=== PATIENT | male | born 1950 | race Caucasian/White ===

== ENCOUNTER → 2018-04-01 08:37 | Outpatient (CLI) | payer MEDICARE, SELFPAY ==
[2018-04-01 10:30] LABS: AST(SGOT) 17 U/L (15-37); Alanine Aminotransfer ALT/SGPT 21 U/L (16-61); Alkaline Phosphatase 46 U/L (45-117); Bilirubin, Direct 0.08 mg/dL (0.00-0.30); Cholesterol 166 mg/dL (200); Globulin 3.6 g/dL (2.2-4.2); High Density Lipoprotein 42 mg/dL; Protein, Total 7.6 g/dL (6.4-8.2); Triglycerides 118 mg/dL; Very Low Density Lipoprotein 24 mg/dL (5-40)
== END ==
PROVIDERS: Family Provider Family Medicine; PCP Family Medicine; Visit Provider Internal Medicine Cardiovascular Disease
DX: E78.5 Hyperlipidemia, unspecified (principal); I10 Essential (primary) hypertension; I25.810 Atherosclerosis of coronary artery bypass graft(s) without angina pectoris; I47.1 Supraventricular tachycardia; I47.2 Ventricular tachycardia; Z79.899 Other long term (current) drug therapy
CPT/HCPCS: 36415; 80061; 80076

== ENCOUNTER → 2018-06-05 08:31 | Outpatient (CLI) | payer MEDICARE, SELFPAY ==
[2018-06-05 10:41] LABS: Anion Gap 9 (5-15); BUN 24 mg/dL (7-18); BUN/Creat Ratio 21.4 RATIO (10-20); Calcium,Total 8.6 mg/dL (8.5-10.1); Chloride 109 mmol/L (98-107); Creatinine, Serum 1.12 mg/dL (0.70-1.30); EST Glomerular Filtration Rate 69 mL/min (>60); Est Glom Filt Rate - Afr Amer 84 mL/min (>60); Glucose 108 mg/dL (74-106); Potassium 4.3 mmol/L (3.5-5.1); Sodium Level 143 mmol/L (136-145)
[2018-06-05 11:12] LABS: Microalbumin,Random Urine 7.1 mg/L (NO RANGE EST.); Microalbumin:Creatinine Ratio 7.1 mg/g CRE (<30 mg/g CRE)
== END ==
PROVIDERS: Family Provider Family Medicine; PCP Family Medicine; Visit Provider Family Medicine
DX: E11.9 Type 2 diabetes mellitus without complications (principal)
CPT/HCPCS: 36415; 80048; 82043; 82570

== ENCOUNTER → 2018-07-25 09:04 | Outpatient (CLI) | payer MEDICARE, SELFPAY ==
[2018-07-25 11:34] LABS: PSA,Total - Annual Screen 3.17 ng/mL (0.00-4.00)
== END ==
PROVIDERS: Family Provider Family Medicine; PCP Family Medicine; Visit Provider Urology
DX: Z12.5 Encounter for screening for malignant neoplasm of prostate (principal)
CPT/HCPCS: 36415; 84153; G0103

== ENCOUNTER → 2018-12-17 16:08 | Outpatient (CLI) | payer MEDICARE, SELFPAY ==
[2018-04-02 11:44] VITALS: BMI 26.6
--- NOTE | 2018-12-17 16:11 | RAD_ITS ---
STUDY: X-RAY - RIGHT TIBIA AND FIBULA REASON FOR EXAM: Male, 68 years old. post fall TECHNIQUE: 2 view(s) of the tibia and fibula were obtained. COMPARISON: None. FINDINGS: Normal visualized tibia. Normal visualized fibula. There are vascular calcifications demonstrated. There are phleboliths. There is no visualized acute fracture or dislocation. RAD/Tibia & Fibula 2 Views IMPRESSION: No evidence of an acute or chronic fracture. Electronically Signed: Meliza Lopez MD at 16:29 EST Tel , Service support ,
== END ==
PROVIDERS: Family Provider Family Medicine; PCP Family Medicine; Referring Provider Family Medicine; Visit Provider Family Medicine
DX: S80.11XA Contusion of right lower leg, initial encounter (principal); X58.XXXA Exposure to other specified factors, initial encounter; Y93.9 Activity, unspecified; Y92.9 Unspecified place or not applicable; Y99.9 Unspecified external cause status
CPT/HCPCS: 73590

== ENCOUNTER → 2019-03-05 09:11 | Outpatient (CLI) | payer MEDICARE, SELFPAY ==
[2018-04-02 11:44] VITALS: BMI 26.6
[2019-03-05 10:49] LABS: Anion Gap 9 (5-15); BUN 25 mg/dL (7-18); BUN/Creat Ratio 27.2 RATIO (10-20); Calcium,Total 8.6 mg/dL (8.5-10.1); Chloride 104 mmol/L (98-107); Cholesterol 175 mg/dL (200); Creatinine, Serum 0.92 mg/dL (0.70-1.30); EST Glomerular Filtration Rate 86 mL/min (>60); Est Glom Filt Rate - Afr Amer 105 mL/min (>60); Glucose 84 mg/dL (74-106); High Density Lipoprotein 40 mg/dL; Potassium 4.6 mmol/L (3.5-5.1); Sodium Level 137 mmol/L (136-145); Triglycerides 148 mg/dL; Very Low Density Lipoprotein 30 mg/dL (5-40)
== END ==
PROVIDERS: Family Provider Family Medicine; PCP Family Medicine; Referring Provider Family Medicine; Visit Provider Family Medicine
DX: E11.9 Type 2 diabetes mellitus without complications (principal)
CPT/HCPCS: 36415; 80048; 80061

== ENCOUNTER → 2019-04-03 08:19 | Outpatient (CLI) | payer MEDICARE, SELFPAY ==
[2018-04-02 11:44] VITALS: BMI 26.6
[2019-04-03 09:20] LABS: AST(SGOT) 15 U/L (15-37); Alanine Aminotransfer ALT/SGPT 18 U/L (16-61); Albumin, Serum 3.9 g/dL (3.2-5.0); Alkaline Phosphatase 44 U/L (45-117); Bilirubin, Direct 0.14 mg/dL (0.00-0.30); Cholesterol 168 mg/dL (200); Globulin 3.6 g/dL (2.2-4.2); High Density Lipoprotein 42 mg/dL; Protein, Total 7.5 g/dL (6.4-8.2); Triglycerides 145 mg/dL; Very Low Density Lipoprotein 29 mg/dL (5-40)
== END ==
PROVIDERS: Family Provider Family Medicine; PCP Family Medicine; Referring Provider Internal Medicine Cardiovascular Disease; Visit Provider Internal Medicine Cardiovascular Disease
DX: E78.5 Hyperlipidemia, unspecified (principal)
CPT/HCPCS: 36415; 80061; 80076

== ENCOUNTER → 2019-08-05 15:48 | Outpatient (CLI) | payer MEDICARE, SELFPAY ==
[2019-04-09 15:16] VITALS: BMI 26.6
[2019-08-05 17:41] LABS: PSA,Total - Annual Screen 2.68 ng/mL (0.00-4.00)
== END ==
PROVIDERS: Family Provider Family Medicine; PCP Family Medicine; Referring Provider Urology; Visit Provider Urology
DX: Z12.5 Encounter for screening for malignant neoplasm of prostate (principal)
CPT/HCPCS: 36415; 84153; G0103

== ENCOUNTER → 2019-09-12 12:13 | Outpatient (CLI) | payer MEDICARE, SELFPAY ==
[2019-04-09 15:16] VITALS: BMI 26.6
[2019-09-12 14:12] LABS: ALB/GLOB Ratio 1.1 RATIO (0.9-2.4); AST(SGOT) 16 U/L (15-37); Alanine Aminotransfer ALT/SGPT 20 U/L (16-61); Albumin, Serum 3.9 g/dL (3.2-5.0); Alkaline Phosphatase 46 U/L (45-117); Anion Gap 5 (5-15); BUN 24 mg/dL (7-18); BUN/Creat Ratio 23.8 RATIO (10-20); Chloride 102 mmol/L (98-107); Creatinine, Serum 1.01 mg/dL (0.70-1.30); EST Glomerular Filtration Rate 78 mL/min (>60); Est Glom Filt Rate - Afr Amer 94 mL/min (>60); Globulin 3.6 g/dL (2.2-4.2); Glucose 82 mg/dL (74-106); Potassium 4.7 mmol/L (3.5-5.1); Protein, Total 7.5 g/dL (6.4-8.2); Sodium Level 135 mmol/L (136-145)
== END ==
PROVIDERS: Family Provider Family Medicine; PCP Family Medicine; Referring Provider Family Medicine; Visit Provider Family Medicine
DX: E11.9 Type 2 diabetes mellitus without complications (principal)
CPT/HCPCS: 36415; 80053

== ENCOUNTER → 2020-03-02 07:35 | Outpatient (CLI) | payer MEDICARE, SELFPAY ==
[2019-04-09 15:16] VITALS: BMI 26.6
[2020-03-02 08:13] LABS: AST(SGOT) 14 U/L (15-37); Alanine Aminotransfer ALT/SGPT 18 U/L (16-61); Albumin, Serum 3.9 g/dL (3.2-5.0); Alkaline Phosphatase 45 U/L (45-117); Cholesterol 176 mg/dL (200); Globulin 3.5 g/dL (2.2-4.2); High Density Lipoprotein 43 mg/dL; Protein, Total 7.4 g/dL (6.4-8.2); Triglycerides 123 mg/dL; Very Low Density Lipoprotein 25 mg/dL (5-40)
== END ==
PROVIDERS: PCP Family Medicine; Referring Provider Internal Medicine Cardiovascular Disease; Visit Provider Internal Medicine Cardiovascular Disease
DX: E78.5 Hyperlipidemia, unspecified (principal)
CPT/HCPCS: 36415; 80061; 80076

== ENCOUNTER → 2020-05-04 06:18 | Outpatient (CLI) | payer MEDICARE, SELFPAY ==
[2020-04-05 08:41] VITALS: BMI 25.9
--- NOTE | 2020-05-04 07:58 | STRESSREP ---
Stress Test Report Date: 05-04-2020 Procedure: Exercise tolerance test/imaging study Indications: CAD; CABG; SVT; hyperlipidemia; hypertension Consent: Per the patient Procedure: The patient exercised on a Odell protocol for 7 minutes and 15 seconds completing Stage II and 1 minute and 15 seconds of Stage III achieving a peak heart rate of 125 bpm (83 % predicted maximal heart rate) with a peak blood pressure 168/64 mmHg and a peak MET capacity of 7 METs. The baseline ECG demonstrated normal sinus rhythm; septal AR of indeterminate age cannot be excluded. The peak exercise ECG demonstrated somatic/motion artifact with 0.5 to 1.[address] segment depression in leads II, III, aVF, and V4 through V6 with resolution towards baseline beginning by 1 minute in recovery. There were no cardiac dysrhythmias pretest, during exercise, or recovery. The functional capacity was considered average. There was no complaint of chest discomfort during exercise or recovery. The examination was discontinued secondary to dyspnea and leg discomfort. Impression: 1. Technically adequate (percent predicted maximal heart rate greater than 85%) exercise tolerance test 2. Peak exercise ECG demonstrating somatic/motion artifact with 0.5 to 1.[address] segment depression in leads II, III, aVF, and V4 through V6 with resolution towards baseline beginning by 1 minute in recovery 3. There were no cardiac dysrhythmias pretest, during exercise, or recovery 4. Nuclear images pending Myocardial perfusion imaging study: Technique: The patient was injected with 12.0 mCi of technetium 99m Cardiolite and subsequently rest SPECT Cardiolite nuclear imaging was obtained in the horizontal long, vertical long, and short axis views. The patient exercised on a Odell protocol for 7 minutes and 15 seconds completing Stage II and 1 minute and 15 seconds of Stage III achieving a peak heart rate of 125 bpm (83 % predicted maximal heart rate) with a peak blood pressure 168/64 mmHg and a peak MET capacity of 7 METs. The patient was injected with 36.0 mCi of technetium 99m Cardiolite and subsequently stress SPECT Cardiolite nuclear imaging was obtained in the horizontal long, vertical long, and short axis views. A gated Cardiolite study at peak stress was obtained. Interpretation: Rest and stress SPECT Cardiolite nuclear imaging status post realignment, normalization, and attenuation correction, demonstrates the appearance of relative uniform tracer uptake and myocardial perfusion appearing within normal limits. There is end systolic thickening and brightening. The gated Cardiolite study demonstrates myocardial thickening and inward wall motion. The reported LVEF is 77 %. Impression: 1. Rest and stress SPECT Cardiolite nuclear imaging demonstrate relative uniform tracer uptake and myocardial perfusion appearing within normal limits. 2. The gated Cardiolite study reports an LVEF of 77 %. This note was generated with [employer] software. It may contain incorrect words, spelling, and punctuation that were not noted in checking the note before signing.
== END ==
PROVIDERS: PCP Family Medicine; Referring Provider Internal Medicine Cardiovascular Disease; Visit Provider Internal Medicine Cardiovascular Disease
DX: I25.10 Atherosclerotic heart disease of native coronary artery without angina pectoris (principal); I47.1 Supraventricular tachycardia; I10 Essential (primary) hypertension; E78.5 Hyperlipidemia, unspecified; Z95.1 Presence of aortocoronary bypass graft
CPT/HCPCS: 78452; 93017; A9500; A4216

== ENCOUNTER → 2020-06-02 08:49 | Outpatient (CLI) | payer MEDICARE, SELFPAY ==
[2020-04-05 08:41] VITALS: BMI 25.9
[2020-06-02 10:59] LABS: Anion Gap 7 (5-15); BUN 21 mg/dL (7-18); BUN/Creat Ratio 21.7 RATIO (10-20); Calcium,Total 8.6 mg/dL (8.5-10.1); Chloride 109 mmol/L (98-107); Cholesterol 166 mg/dL (200); Creatinine, Serum 0.97 mg/dL (0.70-1.30); EST Glomerular Filtration Rate 81 mL/min (>60); Est Glom Filt Rate - Afr Amer 99 mL/min (>60); Glucose 137 mg/dL (74-106); High Density Lipoprotein 42 mg/dL; Potassium 4.1 mmol/L (3.5-5.1); Sodium Level 141 mmol/L (136-145); Triglycerides 70 mg/dL; Very Low Density Lipoprotein 14 mg/dL (5-40)
== END ==
PROVIDERS: PCP Family Medicine; Visit Provider Family Medicine
DX: E11.9 Type 2 diabetes mellitus without complications (principal)
CPT/HCPCS: 36415; 80048; 80061

== ENCOUNTER → 2020-08-17 08:28 | Outpatient (CLI) | payer MEDICARE, SELFPAY ==
[2020-04-05 08:41] VITALS: BMI 25.9
[2020-08-17 09:23] LABS: PSA,Total - Annual Screen 2.72 ng/mL (0.00-4.00)
== END ==
PROVIDERS: PCP Family Medicine; Referring Provider Urology; Visit Provider Urology
DX: Z12.5 Encounter for screening for malignant neoplasm of prostate (principal)
CPT/HCPCS: 36415; 84153; G0103

== ENCOUNTER → 2020-08-23 16:41 | Outpatient (CLI) | payer MEDICARE, SELFPAY ==
[2020-04-05 08:41] VITALS: BMI 25.9
[2020-08-23 18:30] LABS: Erythrocyte Sedimentation Rate 46 mm/hr (0-20)
[2020-08-23 19:05] LABS: Anion Gap 6 (5-15); BUN 38 mg/dL (7-18); BUN/Creat Ratio 31.1 RATIO (10-20); CPK Total, Creatine Kinase 48 U/L (39-308); Chloride 104 mmol/L (98-107); Creatinine, Serum 1.22 mg/dL (0.70-1.30); EST Glomerular Filtration Rate 62 mL/min (>60); Est Glom Filt Rate - Afr Amer 75 mL/min (>60); Glucose 207 mg/dL (74-106); Potassium 4.5 mmol/L (3.5-5.1); Sodium Level 136 mmol/L (136-145)
[2020-08-23 19:13] LABS: AST(SGOT) 9 U/L (15-37); Alanine Aminotransfer ALT/SGPT 12 U/L (16-61); Albumin, Serum 3.3 g/dL (3.2-5.0); Alkaline Phosphatase 54 U/L (45-117); Bilirubin, Direct 0.08 mg/dL (0.00-0.30); Cholesterol 172 mg/dL (200); Globulin 3.9 g/dL (2.2-4.2); High Density Lipoprotein 44 mg/dL; Protein, Total 7.2 g/dL (6.4-8.2); Triglycerides 134 mg/dL; Very Low Density Lipoprotein 27 mg/dL (5-40)
[2020-08-25 14:38] LABS: ANTINUCLEAR ANTIBODIES DIRECT Positive (Negative)
== END ==
PROVIDERS: Internal Medicine Cardiovascular Disease; PCP Family Medicine; Visit Provider Family Medicine
DX: E78.00 Pure hypercholesterolemia, unspecified (principal); M79.10 Myalgia, unspecified site; M25.50 Pain in unspecified joint
CPT/HCPCS: 36415; 80048; 80061; 80076; 82550; 85652; 86038

== ENCOUNTER → 2020-09-22 | Outpatient (CLI) | payer MEDICARE, SELFPAY ==
[2020-04-05 08:41] VITALS: BMI 25.9
[2020-09-22 09:18] LABS: Lyme Ab Screen Interpretation REF LAB
[2020-09-23 17:09] LABS: Lyme Scn Total Ab w/Rflx <0.91 ISR (0.00-0.90)
== END | disposition home or self-care (01) ==
LOC: MFPLAB 09:14
PROVIDERS: PCP Family Medicine; Referring Provider Family Medicine; Visit Provider Family Medicine
DX: T14.8XXA Other injury of unspecified body region, initial encounter (principal); W57.XXXA Bitten or stung by nonvenomous insect and other nonvenomous arthropods, initial encounter; Y93.9 Activity, unspecified; Y92.9 Unspecified place or not applicable; Y99.9 Unspecified external cause status
CPT/HCPCS: 36415; 86618

== ENCOUNTER → 2020-09-28 10:20 | Outpatient (CLI) | payer MEDICARE, SELFPAY ==
[2020-04-05 08:41] VITALS: BMI 25.9
--- NOTE | 2020-09-28 10:24 | RAD_ITS ---
STUDY: X-RAY - RIGHT SHOULDER REASON FOR EXAM: Male, 70 years old. Inflammatory polyarthropathy TECHNIQUE: 4 view(s) of the shoulder. COMPARISON: None. FINDINGS: Normal glenohumeral articulation. Normal acromioclavicular joint. Normal acromion. Normal humeral head and visualized proximal humerus. There is periarticular soft tissue calcification consistent with a calcific tendinitis. Normal visualized pulmonary apex. RAD/Shoulder min 2 Views IMPRESSION: Calcific tendinitis. Electronically Signed: Homar Aburto, at 12:59 EST , Service support ,
--- NOTE | 2020-09-28 10:24 | RAD_ITS ---
STUDY: X-RAY - LEFT SHOULDER REASON FOR EXAM: Male, 70 years old. Inflammatory polyarthropathy TECHNIQUE: 4 view(s) of the shoulder. COMPARISON: None. FINDINGS: Normal glenohumeral articulation. Normal acromioclavicular joint. Normal acromion. Normal humeral head and visualized proximal humerus. There is a 6.6 mm rounded calcific density in the lateral aspect of the left axillary region suggestive of possible calcified lymph node. Normal visualized pulmonary apex. RAD/Shoulder min 2 Views IMPRESSION: No acute abnormality is seen. Electronically Signed: Homar Aburto, at 13:00 EST , Service support ,
[2020-09-28 11:28] LABS: EXAGEN MAILED SPECIMEN
[2020-09-28 12:24] LABS: Color, Urine Yellow (Yellow); Glucose, Dipstick 1000 mg/dl (Normal); Ketone-Dipstick 5 mg/dl (Negative); Leukocyte Esterase-Dipstick Negative /ul (Negative); Nitrite-Dipstick Negative (Negative); Occult Blood-Urine Negative /ul (Negative); Protein-Dipstick Negative (Negative); Urine Bilirubin Dipstick Negative (Negative); Urine Clarity Clear (Clear); Urine Urobilinogen Normal (Normal)
[2020-09-28 12:26] LABS: Erythrocyte Sedimentation Rate 8 mm/hr (0-20)
[2020-09-28 12:28] LABS: Absolute Lymphocyte Count 2.13 X10^3/uL (0.83-4.51); Absolute Neutrophil Count 7.8 X10^3/uL (2.0-7.7); Basophil# 0.07 X10^3/uL; Basophil% 0.6 % (0-1); Eosinophil# 0.13 X10^3/uL; Eosinophils% 1.1 % (0-5); Hematocrit 44.2 % (40-54); Hemoglobin 14.7 g/dL (13.0-16.5); Lymphocyte # 2.13 X10^3/ul (4.0); Lymphocyte % 18.7 % (19-41); Mean Corp Hgb Conc 33.3 g/dL (32-36); Mean Corpuscular Hgb 30.6 pg (27.0-32.0); Mean Corpuscular Volume 92.1 fL (80-94); Mean Platelet Vol. 9.6 fl (6.2-12.0); Monocyte# 1.06 X10^3/uL; Monocyte% 9.3 % (0-10); NRBC Flagged by Analyzer 0 % (0-5); Neutrophil % 68.7 % (47-70); Platelet Count 313 K/mm3 (150-450); RBC Distribution Width CV 11.7 % (11.6-14.6); White Blood Count 11.4 K/mm3 (4.4-11.0)
[2020-09-28 12:40] LABS: Protein, Urine (Random) 9.1 mg/dL (<11.9); Protein:Creat Ratio 126 mg/g CRE (0-200)
[2020-09-28 12:46] LABS: ALB/GLOB Ratio 0.9 RATIO (0.9-2.4); AST(SGOT) 9 U/L (15-37); Alanine Aminotransfer ALT/SGPT 19 U/L (16-61); Albumin, Serum 3.8 g/dL (3.2-5.0); Alkaline Phosphatase 54 U/L (45-117); Anion Gap 7 (5-15); BUN 33 mg/dL (7-18); BUN/Creat Ratio 28.4 RATIO (10-20); CRP 5.48 mg/L (0.0-3.0); Calcium,Total 9.2 mg/dL (8.5-10.1); Chloride 98 mmol/L (98-107); Creatinine, Serum 1.16 mg/dL (0.70-1.30); EST Glomerular Filtration Rate 66 mL/min (>60); Est Glom Filt Rate - Afr Amer 80 mL/min (>60); Globulin 4.1 g/dL (2.2-4.2); Glucose 149 mg/dL (74-106); Potassium 5.5 mmol/L (3.5-5.1); Protein, Total 7.9 g/dL (6.4-8.2); Sodium Level 132 mmol/L (136-145)
[2020-09-28 13:19] LABS: Hepatitis B Surface Antibody Non-Reactive; Hepatitis B Surface Antigen Non-Reactive (Nonreactive); Hepatitis C Antibody Non-Reactive (Nonreactive)
[2020-09-29 08:14] LABS: Hepatitis B Core AB IgM Negative (Negative)
== END ==
PROVIDERS: PCP Family Medicine; Referring Provider Internal Medicine Rheumatology; Visit Provider Internal Medicine Rheumatology
DX: M06.4 Inflammatory polyarthropathy (principal); R76.8 Other specified abnormal immunological findings in serum; M51.36 Other intervertebral disc degeneration, lumbar region; H35.30 Unspecified macular degeneration; I10 Essential (primary) hypertension; E11.9 Type 2 diabetes mellitus without complications; E78.5 Hyperlipidemia, unspecified; I25.10 Atherosclerotic heart disease of native coronary artery without angina pectoris; N13.8 Other obstructive and reflux uropathy; N40.0 Benign prostatic hyperplasia without lower urinary tract symptoms
CPT/HCPCS: 36415; 73030; 80053; 81002; 82570; 84156; 85025; 85652; 86140; 86705; 86706; 86803; 87340

== ENCOUNTER → 2020-12-01 09:23 | Outpatient (CLI) | payer MEDICARE, SELFPAY ==
[2020-04-05 08:41] VITALS: BMI 25.9
[2020-12-01 10:58] LABS: AST(SGOT) 10 U/L (15-37); Alanine Aminotransfer ALT/SGPT 18 U/L (16-61); Albumin, Serum 3.6 g/dL (3.2-5.0); Alkaline Phosphatase 46 U/L (45-117); Anion Gap 6 (5-15); BUN 18 mg/dL (7-18); BUN/Creat Ratio 21.9 RATIO (10-20); Calcium,Total 8.8 mg/dL (8.5-10.1); Chloride 104 mmol/L (98-107); Creatinine, Serum 0.82 mg/dL (0.70-1.30); EST Glomerular Filtration Rate 98 mL/min (>60); Est Glom Filt Rate - Afr Amer 118 mL/min (>60); Globulin 3.5 g/dL (2.2-4.2); Glucose 93 mg/dL (74-106); Potassium 3.9 mmol/L (3.5-5.1); Protein, Total 7.1 g/dL (6.4-8.2); Sodium Level 135 mmol/L (136-145)
== END ==
PROVIDERS: PCP Family Medicine; Referring Provider Family Medicine; Visit Provider Family Medicine
DX: E78.5 Hyperlipidemia, unspecified (principal)
CPT/HCPCS: 36415; 80053

== ENCOUNTER → 2020-12-23 08:22 | Outpatient (CLI) | payer MEDICARE, SELFPAY ==
[2020-04-05 08:41] VITALS: BMI 25.9
[2020-12-23 09:14] LABS: AST(SGOT) 13 U/L (15-37); Alanine Aminotransfer ALT/SGPT 17 U/L (16-61); Albumin, Serum 3.8 g/dL (3.2-5.0); Alkaline Phosphatase 47 U/L (45-117); Bilirubin, Direct 0.06 mg/dL (0.00-0.30); Cholesterol 188 mg/dL (200); Globulin 3.5 g/dL (2.2-4.2); High Density Lipoprotein 47 mg/dL; Protein, Total 7.3 g/dL (6.4-8.2); Triglycerides 120 mg/dL; Very Low Density Lipoprotein 24 mg/dL (5-40)
== END ==
PROVIDERS: PCP Family Medicine; Referring Provider Internal Medicine Cardiovascular Disease; Visit Provider Internal Medicine Cardiovascular Disease
DX: E78.00 Pure hypercholesterolemia, unspecified (principal)
CPT/HCPCS: 36415; 80061; 80076

== ENCOUNTER → 2020-12-24 10:04 | Outpatient (CLI) | payer MEDICARE, SELFPAY ==
[2020-04-05 08:41] VITALS: BMI 25.9
[2020-12-24 12:44] LABS: Absolute Lymphocyte Count 1.57 X10^3/uL (0.83-4.51); Absolute Neutrophil Count 4.3 X10^3/uL (2.0-7.7); Basophil# 0.05 X10^3/uL; Basophil% 0.7 % (0-1); Eosinophil# 0.38 X10^3/uL; Eosinophils% 5.5 % (0-5); Hematocrit 41.2 % (40-54); Hemoglobin 13.6 g/dL (13.0-16.5); Lymphocyte # 1.57 X10^3/ul (4.0); Lymphocyte % 22.7 % (19-41); Mean Corpuscular Hgb 30.8 pg (27.0-32.0); Mean Corpuscular Volume 93.4 fL (80-94); Mean Platelet Vol. 9.5 fl (6.2-12.0); Monocyte# 0.58 X10^3/uL; Monocyte% 8.4 % (0-10); NRBC Flagged by Analyzer 0 % (0-5); Platelet Count 246 K/mm3 (150-450); Red Blood Count 4.41 M/mm3 (4.6-6.2); White Blood Count 6.9 K/mm3 (4.4-11.0)
[2020-12-24 13:17] LABS: ALB/GLOB Ratio 1.1 RATIO (0.9-2.4); AST(SGOT) 13 U/L (15-37); Alanine Aminotransfer ALT/SGPT 16 U/L (16-61); Albumin, Serum 3.6 g/dL (3.2-5.0); Alkaline Phosphatase 48 U/L (45-117); Anion Gap 7 (5-15); BUN 26 mg/dL (7-18); BUN/Creat Ratio 29.1 RATIO (10-20); Calcium,Total 9.4 mg/dL (8.5-10.1); Chloride 104 mmol/L (98-107); Creatinine, Serum 0.89 mg/dL (0.70-1.30); EST Glomerular Filtration Rate 89 mL/min (>60); Est Glom Filt Rate - Afr Amer 108 mL/min (>60); Globulin 3.4 g/dL (2.2-4.2); Glucose 105 mg/dL (74-106); Potassium 3.9 mmol/L (3.5-5.1); Sodium Level 138 mmol/L (136-145)
== END ==
PROVIDERS: PCP Family Medicine; Referring Provider Internal Medicine Rheumatology; Visit Provider Internal Medicine Rheumatology
DX: M06.4 Inflammatory polyarthropathy (principal); R76.8 Other specified abnormal immunological findings in serum; M51.36 Other intervertebral disc degeneration, lumbar region; H35.30 Unspecified macular degeneration; I10 Essential (primary) hypertension; E11.9 Type 2 diabetes mellitus without complications; E78.5 Hyperlipidemia, unspecified; I25.10 Atherosclerotic heart disease of native coronary artery without angina pectoris; N40.0 Benign prostatic hyperplasia without lower urinary tract symptoms; N13.8 Other obstructive and reflux uropathy
CPT/HCPCS: 36415; 80053; 85025

== ENCOUNTER → 2020-12-28 09:50 | Outpatient (CLI) | payer MEDICARE, SELFPAY ==
[2020-04-05 08:41] VITALS: BMI 25.9
--- NOTE | 2020-12-28 09:56 | BD_ITS ---
STUDY: DUAL ENERGY X-RAY ABSORPTIOMETRY / DXA REASON FOR EXAM: Male, 70 years old. 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 COMPARISON: None. FINDINGS: Lumbar Spine (L1-L4): g/cm2 (1.590) / T-score (2.9) / Z-score (3.5) Findings are suggestive of normal bone density with a low fracture risk. Left Femur Total: g/cm2 (1.107) / T-score (0.0) / Z-score (0.8) Left Femoral Neck: g/cm2 (0.883) / T-score (-1.4) / Z-score (-0.2) Right Femur Total: g/cm2 (1.074) / T-score (-0.2) / Z-score (0.6) Right Femoral Neck: g/cm2 (0.910) / T-score (-1.2) / Z-score (0.1) BD/Dexa Bone Density Study IMPRESSION: The patient is considered normal as outlined below according to World Sky Organization (WHO) criteria with a low fracture risk. Reference Information: The T-score is the number of standard deviations above or below the standard which is normal for young adults at their peak bone mineral density. The World Health Organization (WHO) interprets the T-scores as follows: Above -1 Normal bone density Between -1 and -2.5 Osteopenia Equal to / or below -2.5 Osteoporosis As a practical clinical guideline, osteopenia may be graded as follows: Mild -1 through -1.5 Moderate -1.6 through -2.0 Severe -2.1 through -2.4 The Z-score is the number of standard deviations above or below age-matched controls. A Z-score of less than -1.5 would be considered abnormal. References: 1. NIH Osteoporosis and Related Bone Diseases www osteo.org 2. International Society for Clinical Densitometry www iscd.org 3. National Osteoporosis Foundation www nof.org Electronically Signed: Homar Aburto MD at 12:47 EST , Service support ,
== END ==
PROVIDERS: PCP Family Medicine; Referring Provider Family Medicine; Visit Provider Family Medicine
DX: E11.9 Type 2 diabetes mellitus without complications (principal); Z79.52 Long term (current) use of systemic steroids
CPT/HCPCS: 77080

== ENCOUNTER → 2021-01-06 09:44 | Outpatient (CLI) | payer MEDICARE, SELFPAY ==
[2020-12-30 11:15] VITALS: BMI 26.9
--- NOTE | 2021-01-06 09:51 | ECHOD_ITS ---
Reason For Study: MURMUR Procedure This was a 2D Doppler, Color Flow transthoracic echocardiogram. The study was technically difficult. Exam performed in department. Left Ventricle Normal LV size. Left ventricular systolic function is normal. The estimated ejection fraction is 65 %. No evidence for diastolic dysfunction. No regional wall motion abnormalities noted. Right Ventricle Normal RV size. Normal systolic function. Atria The left atrium is mildly enlarged. The right atrium is mildly enlarged. No doppler evidence for ASD. Bubble contrast study negative for right to left interatrial shunt. Mitral Valve There is mild mitral annular calcification. Extension of the mitral annular calcification onto the base of the posterior mitral valve leaflet. Trivial mitral valve insufficiency. Tricuspid Valve Normal tricuspid valve. Mild to moderate (1-2+) tricuspid valve insufficiency. Right ventricular systolic pressure estimated to be 36 mmHg. Aortic Valve Trisinus/trileaflet aortic valve. Moderate focal aortic valve calcification. Aortic sclerosis, no stenosis. Pulmonic Valve The pulmonic valve is not well visualized. Great Vessels Normal sized aortic root. Pericardium/Pleural No pericardial effusion. Medication 22 gauge I.V. with prn adaptor inserted into right arm. Performed a rapid injection of agitated mix of 9 cc saline and 1cc air to assess for atrial septal defect. MMode/2D Measurements & Calculations LVIDd: 4.3 cm IVSd: 1.0 cm LVOT diam: 2.0 cm LVIDs: 2.8 cm LVPWd: 1.0 cm RVDd: 3.4 cm FS: 35.7 % LVOT area: 3.1 cm2 Ao root diam: 3.3 cm LAV(MOD-bp): 59.1 ml LVAd ap4: 31.5 cm2 LAV(MOD-bp) Indexed: 29.8 ml/m2 EDV(MOD-sp4): 98.7 ml LAV(MOD-sp2): 62.8 ml EDV(sp4-el): 101.3 ml LAV(MOD-sp4): 50.2 ml LVAs ap4: 15.0 cm2 ESV(MOD-sp4): 32.1 ml ESV(sp4-el): 30.6 ml EF(MOD-sp4): 67.4 % EF(sp4-el): 69.8 % SV(MOD-sp4): 66.5 ml SV(sp4-el): 70.7 ml LA A4 area: 18.8 cm2 LA dimension(2D): 3.8 cm RA A4 area: 19.1 cm2 Time Measurements MV dec time: 0.24 sec Doppler Measurements & Calculations MV E max cruz: 90.2 cm/sec Lat Peak E' Cruz: 11.0 cm/sec Med Peak E' Cruz: 9.8 cm/sec MV A max cruz: 82.6 cm/sec E/E' lat: 8.2 E/E' med: 9.2 MV E/A: 1.1 Ao V2 max: 180.5 cm/sec LV V1 max: 114.3 cm/sec PA V2 max: 90.4 cm/sec Ao max P.0 mmHg LV V1 max P.2 mmHg CHUCK(V,D): 2.0 cm2 TR max cruz: 285.4 cm/sec TR max P.6 mmHg Interpretation Summary The study was technically difficult. Left ventricular systolic function is normal. The estimated ejection fraction is 65 %. The left atrium is mildly enlarged. The right atrium is mildly enlarged. There is mild mitral annular calcification. Extension of the mitral annular calcification onto the base of the posterior mitral valve leaflet. Trivial mitral valve insufficiency. Mild to moderate (1-2+) tricuspid valve insufficiency. Moderate focal aortic valve calcification. Aortic sclerosis, no stenosis. Right ventricular systolic pressure estimated to be 36 mmHg. No evidence for diastolic dysfunction. Ordering Physician: Scar Cardoza Referring Physician: SCAR HAILE Performed By: Katy Campbell RDCS
--- NOTE | 2021-01-06 09:51 | CDU_ITS ---
Reason For Study: Carotid artery disease Rt. Velocities/BP Lt. Velocities/BP Prox CCA 121.1/18.8 cm/sec. Prox CCA 121.1/20.6 cm/sec. Mid CCA 133.9/17 cm/sec. Mid CCA 124.7/18.8 cm/sec. Dist CCA 126.6/18.8 cm/sec. Dist CCA 106.5/15.2 cm/sec. Prox ICA 114.8/16 cm/sec. Prox ICA 82.7/17 cm/sec. Mid ICA 90.6/22.6 cm/sec. Mid ICA 97.4/22.5 cm/sec. Dist ICA 90/26.1 cm/sec. Dist ICA 82.7/22.5 cm/sec. Rt. ICA/CCA = 0.91. Lt. ICA/CCA = 0.80. Prox ECA 279.7/12.9 cm/sec. Prox ECA 243.4 cm/sec. Rt. Vert. 63/10.2 cm/sec. Right Extracranial There is homogeneous, smooth atherosclerotic plaque noted in the right common carotid artery. There is heterogeneous, irregular atherosclerotic plaque noted in the right internal carotid artery. There is heterogeneous, irregular atherosclerotic plaque noted in the right external carotid artery. Antegrade flow is noted in the right vertebral artery. Left Extracranial There is heterogeneous, smooth atherosclerotic plaque noted in the left common carotid artery. There is heterogeneous, irregular atherosclerotic plaque noted in the left internal carotid artery. There is heterogeneous, irregular atherosclerotic plaque noted in the left external carotid artery. Antegrade flow is noted in the left vertebral artery. Procedure Carotid Duplex 50028. This is a Carotid Duplex examination using B-mode, color flow and specral Doppler. Exam performed in department. Interpretation Summary Irregular calcific plaque at the proximal right internal carotid artery with less than 50% stenosis Greater than 50% stenosis right external carotid artery Smooth plaque at the proximal left internal carotid artery with less than 50% stenosis Greater than 50% stenosis left external carotid artery Patent and antegrade vertebral arteries bilaterally Ordering Physician: Scar Cardoza Referring Physician: Scar Hdz Performed By: Janie Temple RVT
== END ==
PROVIDERS: PCP Family Medicine; Referring Provider Internal Medicine Cardiovascular Disease; Visit Provider Internal Medicine Cardiovascular Disease
DX: I65.23 Occlusion and stenosis of bilateral carotid arteries (principal); I25.10 Atherosclerotic heart disease of native coronary artery without angina pectoris; I47.1 Supraventricular tachycardia; I47.2 Ventricular tachycardia; I10 Essential (primary) hypertension; E78.00 Pure hypercholesterolemia, unspecified; R01.1 Cardiac murmur, unspecified; Z95.1 Presence of aortocoronary bypass graft
CPT/HCPCS: 93306; 93880; A4216

== ENCOUNTER → 2021-02-25 09:38 | Outpatient (CLI) | payer MEDICARE, SELFPAY ==
[2021-01-19 14:10] VITALS: BMI 24.8
[2021-02-25 10:30] LABS: Absolute Lymphocyte Count 2.41 X10^3/uL (0.83-4.51); Absolute Neutrophil Count 6.2 X10^3/uL (2.0-7.7); Basophil# 0.05 X10^3/uL; Basophil% 0.5 % (0-1); Eosinophil# 0.48 X10^3/uL; Eosinophils% 4.7 % (0-5); Hematocrit 41.2 % (40-54); Lymphocyte # 2.41 X10^3/ul (4.0); Lymphocyte % 23.6 % (19-41); Mean Corpuscular Hgb 32.3 pg (27.0-32.0); Mean Corpuscular Volume 94.9 fL (80-94); Mean Platelet Vol. 9.5 fl (6.2-12.0); Monocyte# 0.97 X10^3/uL; Monocyte% 9.5 % (0-10); NRBC Flagged by Analyzer 0 % (0-5); Neutrophil # 6.19 X10^3/uL (2.7-7.7); Neutrophil % 60.4 % (47-70); Platelet Count 247 K/mm3 (150-450); RBC Distribution Width CV 13.2 % (11.6-14.6); RBC Distribution Width SD 44.8 fl (35.1-43.9); Red Blood Count 4.34 M/mm3 (4.6-6.2); White Blood Count 10.2 K/mm3 (4.4-11.0)
[2021-02-25 10:53] LABS: AST(SGOT) 11 U/L (15-37); Alanine Aminotransfer ALT/SGPT 15 U/L (16-61); Albumin, Serum 3.7 g/dL (3.2-5.0); Alkaline Phosphatase 43 U/L (45-117); Anion Gap 5 (5-15); BUN 27 mg/dL (7-18); Calcium,Total 9.1 mg/dL (8.5-10.1); Chloride 102 mmol/L (98-107); EST Glomerular Filtration Rate 78 mL/min (>60); Est Glom Filt Rate - Afr Amer 95 mL/min (>60); Globulin 3.6 g/dL (2.2-4.2); Glucose 138 mg/dL (74-106); Potassium 4.5 mmol/L (3.5-5.1); Protein, Total 7.3 g/dL (6.4-8.2); Sodium Level 132 mmol/L (136-145)
== END ==
PROVIDERS: PCP Family Medicine; Referring Provider Internal Medicine Rheumatology; Visit Provider Internal Medicine Rheumatology
DX: M06.4 Inflammatory polyarthropathy (principal); R76.8 Other specified abnormal immunological findings in serum; M51.36 Other intervertebral disc degeneration, lumbar region; H35.30 Unspecified macular degeneration; E11.9 Type 2 diabetes mellitus without complications; I10 Essential (primary) hypertension; E78.5 Hyperlipidemia, unspecified; I25.10 Atherosclerotic heart disease of native coronary artery without angina pectoris; N40.1 Benign prostatic hyperplasia with lower urinary tract symptoms; N13.8 Other obstructive and reflux uropathy; Z79.899 Other long term (current) drug therapy
CPT/HCPCS: 36415; 80053; 85025

== ENCOUNTER → 2021-04-22 09:37 | Outpatient (CLI) | payer MEDICARE, SELFPAY ==
[2021-01-19 14:10] VITALS: BMI 24.8
[2021-04-22 10:05] LABS: Absolute Lymphocyte Count 1.31 X10^3/uL (0.83-4.51); Absolute Neutrophil Count 3.9 X10^3/uL (2.0-7.7); Basophil# 0.04 X10^3/uL; Basophil% 0.7 % (0-1); Eosinophil# 0.29 X10^3/uL; Eosinophils% 4.9 % (0-5); Hematocrit 40.2 % (40-54); Hemoglobin 13.4 g/dL (13.0-16.5); Lymphocyte # 1.31 X10^3/ul (0.83-4.51); Mean Corp Hgb Conc 33.3 g/dL (32-36); Mean Corpuscular Hgb 31.9 pg (27.0-32.0); Mean Corpuscular Volume 95.7 fL (80-94); Mean Platelet Vol. 9.5 fl (6.2-12.0); Monocyte# 0.45 X10^3/uL; Monocyte% 7.6 % (0-10); NRBC Flagged by Analyzer 0 % (0-5); Neutrophil # 3.86 X10^3/uL (2.7-7.7); Neutrophil % 64.6 % (47-70); Platelet Count 223 K/mm3 (150-450); RBC Distribution Width CV 13.9 % (11.6-14.6); RBC Distribution Width SD 47.8 fl (35.1-43.9)
[2021-04-22 10:35] LABS: ALB/GLOB Ratio 1.2 RATIO (0.9-2.4); AST(SGOT) 15 U/L (15-37); Alanine Aminotransfer ALT/SGPT 21 U/L (16-61); Albumin, Serum 3.6 g/dL (3.2-5.0); Alkaline Phosphatase 47 U/L (45-117); Anion Gap 6 (5-15); BUN 25 mg/dL (7-18); BUN/Creat Ratio 25.5 RATIO (10-20); Calcium,Total 8.8 mg/dL (8.5-10.1); Chloride 103 mmol/L (98-107); Creatinine, Serum 0.98 mg/dL (0.70-1.30); EST Glomerular Filtration Rate 80 mL/min (>60); Est Glom Filt Rate - Afr Amer 97 mL/min (>60); Globulin 3.1 g/dL (2.2-4.2); Glucose 120 mg/dL (74-106); Potassium 4.2 mmol/L (3.5-5.1); Protein, Total 6.7 g/dL (6.4-8.2); Sodium Level 136 mmol/L (136-145)
== END ==
PROVIDERS: PCP Family Medicine; Referring Provider Internal Medicine Rheumatology; Visit Provider Internal Medicine Rheumatology
DX: M06.4 Inflammatory polyarthropathy (principal); R76.8 Other specified abnormal immunological findings in serum; M51.36 Other intervertebral disc degeneration, lumbar region; H35.30 Unspecified macular degeneration; I10 Essential (primary) hypertension; E11.9 Type 2 diabetes mellitus without complications; E78.5 Hyperlipidemia, unspecified; I25.10 Atherosclerotic heart disease of native coronary artery without angina pectoris; N13.8 Other obstructive and reflux uropathy; N40.0 Benign prostatic hyperplasia without lower urinary tract symptoms; Z79.899 Other long term (current) drug therapy
CPT/HCPCS: 36415; 80053; 85025

== ENCOUNTER → 2021-06-02 10:01 | Outpatient (CLI) | payer MEDICARE, SELFPAY ==
[2021-01-19 14:10] VITALS: BMI 24.8
[2021-06-02 12:28] LABS: Cholesterol 184 mg/dL (200); High Density Lipoprotein 44 mg/dL; Triglycerides 112 mg/dL; Very Low Density Lipoprotein 22 mg/dL (5-40)
== END ==
PROVIDERS: PCP Family Medicine; Referring Provider Family Medicine; Visit Provider Family Medicine
DX: E11.9 Type 2 diabetes mellitus without complications (principal)
CPT/HCPCS: 36415; 80061

== ENCOUNTER → 2021-08-24 12:58 | Outpatient (CLI) | payer MEDICARE, SELFPAY ==
[2021-08-24 14:01] LABS: PSA,Total - Annual Screen 2.49 ng/mL (0.00-4.00)
== END ==
PROVIDERS: PCP Family Medicine; Referring Provider Urology; Visit Provider Urology
DX: Z12.5 Encounter for screening for malignant neoplasm of prostate (principal)
CPT/HCPCS: 36415; 84153; G0103

== ENCOUNTER → 2021-09-01 09:31 | Outpatient (CLI) | payer MEDICARE, SELFPAY ==
[2021-09-01 11:00] LABS: Microalbumin,Random Urine 6.2 mg/L (NO RANGE EST.); Microalbumin:Creatinine Ratio 13.4 mg/g CRE (<30 mg/g CRE)
[2021-09-01 11:10] LABS: Anion Gap 9 (5-15); BUN 25 mg/dL (7-18); BUN/Creat Ratio 24.8 RATIO (10-20); Calcium,Total 8.9 mg/dL (8.5-10.1); Chloride 103 mmol/L (98-107); Cholesterol 161 mg/dL (200); Creatinine, Serum 1.01 mg/dL (0.70-1.30); EST Glomerular Filtration Rate 77 mL/min (>60); Est Glom Filt Rate - Afr Amer 93 mL/min (>60); Glucose 96 mg/dL (74-106); High Density Lipoprotein 38 mg/dL; Potassium 4.9 mmol/L (3.5-5.1); Sodium Level 137 mmol/L (136-145); Triglycerides 147 mg/dL; Very Low Density Lipoprotein 29 mg/dL (5-40)
== END ==
PROVIDERS: PCP Family Medicine; Referring Provider Family Medicine; Visit Provider Family Medicine
DX: E11.9 Type 2 diabetes mellitus without complications (principal)
CPT/HCPCS: 36415; 80048; 80061; 82043; 82570

== ENCOUNTER 2021-12-25 11:22 | Emergency (ER) | payer MEDICARE, SELFPAY ==
[2021-12-25 11:23] VITALS: BP 132/60; PULSE 69; RESP 17; TEMP 36.9; O2SAT 98; BMI 26.2
--- NOTE | 2021-12-25 11:42 | CT_ITS ---
STUDY: CT CERVICAL SPINE WITHOUT CONTRAST REASON FOR EXAM: Male, 71 years old. Fell on ice hitting his face this morning. Abrasion and edema on the right cheek. RADIATION DOSAGE (If Supplied By Facility): CTDIvol = ( 24.87 ) mGy, DLP = ( 563.64 ) mGycm TECHNIQUE: High resolution transaxial imaging was performed without contrast material. Sagittal and coronal images were reconstructed. Individualized dose optimization techniques were used for this CT. COMPARISON: None FINDINGS: Normal craniovertebral junction. There are degenerative changes of the anterior atlantoaxial articulation. Normal odontoid process. Normal cervical lordosis. Normal vertebral bodies and posterior osseous elements. C2-3: Normal endplates. Normal disc height and morphology. Degenerative facet disease. Normal central canal and intervertebral neuroforamina. C3-4: Normal endplates. Normal disc height and morphology. Degenerative facet disease. Normal central canal and intervertebral neuroforamina. C4-5: Mild endplate spondylosis. Mild bulging annulus without loss of disc height. Facet joint degenerative change. Normal central canal and intervertebral neuroforamina. C5-6: Minimal endplate spondylosis. Facet joint degenerative change. Normal central canal. Narrowing of the bilateral intervertebral neuroforamina. C6-7: Normal endplates. Normal disc height and morphology. No facet joint degenerative change. Normal central canal and intervertebral neuroforamina. C7-T1: Normal endplates. Normal disc height and morphology. Normal central canal and intervertebral neuroforamina. Normal visualized soft tissue structures. CT/Spine Cervical without Contras IMPRESSION: Mild degenerative changes without fracture or subluxation. Note: MRI is more sensitive than CT in detecting cord injury, ligamentous injury and epidural hematoma. If there is continued clinical concern for any of these entities, MRI should be considered. Electronically Signed: Dejon Sutton DO at 12:18 EST ,
--- NOTE | 2021-12-25 11:42 | CT_ITS ---
STUDY: CT BRAIN WITHOUT CONTRAST REASON FOR EXAM: Male, 71 years old. Trauma. Fell and hit face on ice. Pain in the roof of the mouth. RADIATION DOSAGE (If Supplied By Facility): CTDIvol = ( 44.99 ) mGy, DLP = ( 829.85 ) mGycm TECHNIQUE: Transaxial CT imaging of the brain was performed without administration of intravenous contrast material. Individualized dose optimization techniques were used for this CT. COMPARISON: CT facial bones, 12/25/2021. FINDINGS: There is soft tissue swelling over the right maxillary region and lower face. There is a fracture of the anterior wall the right maxillary sinus with opacification of the right sinus. Normal calvarium. Normal size ventricles and extra-axial spaces for the patient''s age. Normal white matter tracts of the cerebral hemispheres. Normal basal ganglia and thalami. Normal brainstem. Normal cerebellum. There is no intracranial hemorrhage. There are no findings of an acute ischemic infarction. Normal visualized paranasal sinuses. CT/Brain/Head without Contrast IMPRESSION: 1. Right facial injury. 2. No evidence of intracranial or calvarial abnormality. Electronically Signed: Dejon Sutton DO at 12:23 EST Reading Location ID and State: [address] [place] [address] Tel [phone], Service support ,
--- NOTE | 2021-12-25 11:42 | CT_ITS ---
STUDY: CT FACIAL BONES WITHOUT CONTRAST REASON FOR EXAM: Male, 71 years old. Follow-up. Fell on ice and hit face. [place] cracking sound. Abrasion on the right cheek. Pain in the right upper mouth. RADIATION DOSAGE (If Supplied By Facility): CTDIvol = ( 29.38 ) mGy, DLP = ( 613.57 ) mGycm TECHNIQUE: The patient was scanned in a multi detector CT scanner. Sagittal and coronal images were reconstructed. Individualized dose optimization techniques were used for this CT. COMPARISON: CT of the head, 12/25/2021. FINDINGS: There is a large soft tissue hematoma overlying the right jaw and lip extending upward over the right maxilla. Normal orbital hinojosa and orbital contents. Normal nasal bones and anterior nasal spine. There is a fracture of the anterior wall of the right maxillary sinus which is depressed inwardly. The sinuses filled with fluid most likely blood. There is no other demonstrated fracture. Mild degenerative changes of the TMJs, right greater than left. There is minimal mucoperiosteal reaction in the anterior ethmoid air cells. As stated there is opacification of the right maxillary sinus. CT/Sinus/Facial Bone IMPRESSION: 1. Fracture the anterior wall of the right maxillary sinus with opacification of the sinus. 2. Marked soft tissue edema from the maxilla to the right shoulder. 3. Normal orbits and orbital contents. 4. No other evidence of facial bone fracture. Electronically Signed: Dejon Sutton DO at 12:21 EST ,
--- NOTE | 2021-12-25 11:43 | EX.ED.GENINJ ---
HPI History of Present Illness Chief Complaint: Fall Informant: patient Onset/Context/Timing Onset: Today Quality of Pain: Aching and Throbbing Current Severity: Moderate Maximum Severity: Moderate Narrative Narrative: Patient present secondary to right facial injury. Patient fell on the ice while carrying a piece of wood. He fell onto the ground striking the right side of his face against a piece of wood that he was carrying. No loss of consciousness. He states he initially had trouble talking but now is able to speak. He takes baby aspirin daily but no other anticoagulants. [facility] Medical History (Updated 12/25/21 @ 12:[address] 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 Peripheral arterial occlusive disease Pure hypercholesterolemia Supraventricular tachycardia Type 2 diabetes mellitus Ventricular tachycardia Home Medications metformin 1,000 mg PO BID 08/27/13 [History Last Taken 05/03/17] tamsulosin 0.4 mg PO DAILY 05/03/17 [History Last Taken 05/03/17] finasteride 5 mg tablet 5 mg PO QDAY 03/27/18 [History Last Taken Unknown] glimepiride 2 mg tablet 2 mg PO BID tab 03/27/18 [History Last Taken Unknown] aspirin 81 mg tablet,delayed release 81 mg PO DAILY tab 04/05/20 [History Last Taken Unknown] docusate sodium 100 mg capsule 100 mg PO BID PRN 04/05/20 [History Last Taken Unknown] coenzyme Q10 75 mg capsule 200 mg PO BID 01/19/21 [History Last Taken Unknown] carvedilol 6.25 mg tablet 6.25 mg PO BID #180 tab 03/28/21 [Rx Last Taken Unknown] atorvastatin 10 mg tablet See Rx Instructions .ROUTE .COMPLEX #90 tab 05/31/21 [Rx Last Taken Unknown] lisinopril 5 mg tablet 10 mg PO DAILY tab 07/07/21 [History Last Taken Unknown] prednisone 1 mg tablet 2 mg PO DAILY tab 07/07/21 [History Last Taken Unknown] amoxicillin-pot clavulanate 1 tab PO BID #20 tab 12/25/21 [Rx Last Taken Unknown] dapagliflozin [Farxiga] 10 mg PO QHS 12/25/21 [History Last Taken Unknown] hydrocodone-acetaminophen 1 tab PO Q6H PRN 3 Days #10 tab 12/25/21 [Rx Last Taken Unknown] vitamins A,C,E-mcsj-pdfzfr [PreserVision AREDS] 1 cap PO BID 12/25/21 [History Last Taken Unknown] zinc 200 mg PO DAILY 12/25/21 [History Last Taken Unknown] Allergy/AdvReac Type Severity Reaction Status Date / Time No Known Allergies Allergy Verified 12/25/21 11:23 Family History Mother CAD (coronary artery disease) Colon cancer Asthma Father Cancer Pancreatic cancer Sister CVA (cerebral vascular accident) Brother Diabetes Heart disease Hypertension Brother Hypertension Heart disease Diabetes Brother Hx of CABG Hypertension Heart disease Kidney disease Surgical History History of vasectomy Hx of CABG (~07/04/13) Hx of colonoscopy Social History Smoking Status: Never smoker second hand exposure: No alcohol intake: never substance use type: does not use caffeine: Yes what type of physical activity do you participate in: walking frequency: 1-2 times per week ROS ROS ED Constitutional Constitutional ED: Denies chills or fever(s) Eyes Eyes: Denies change in vision ENT ENT ED: Reports other Details: Right-sided facial pain and swelling ; Denies sore throat Cardiovascular Cardiovascular: Denies chest pain Respiratory/Chest Respiratory/Chest: Denies cough or dyspnea Gastrointestinal Gastrointestinal: Denies abdominal pain, nausea or vomiting Musculoskeletal Musculoskeletal: Denies back pain or neck pain Integumentary Denies rash Neurologic Neurologic: Denies headache(s) or weakness Allergic/Immunologic Allergic/Immunologic ED: Denies urticaria EXAM Physical Exam Const Vital Signs: 12/25/21 11:23 12/25/21 12:19 Temperature 98.4 F Temperature Source Temporal Pulse Rate 69 Respiratory Rate 17 Respiratory Effort Normal Non-Labored Respiratory Depth Normal Respiratory Pattern Normal Blood Pressure 132/60 H Blood Pressure Mean 84 Pulse Ox 98 Oxygen Delivery Method Room Air Room Air Positive well nourished and well developed General Appearance ED: well developed HEENT HEENT Narrative: Right facial edema with deep abrasions noted over the right maxilla. Intraoral examination reveals no intraoral laceration. Eyes PERRL and EOMs intact bilaterally Neck full ROM Neck Narrative: No focal C-spine tenderness. Chest Wall inspection of chest normal and palpation of chest normal Resp normal respiratory effort and clear to auscultation bilaterally Cardio regular rhythm Rate: regular rate GI non-tender Palpation: soft Back/Spine normal to inspection Extremity normal to inspection Neuro oriented x3 Neuro Narrative: No focal neurologic deficits. Sensorium / Orientation: alert Psych mental status grossly normal MDM MDM MDM Narrative Medical decision making narrative: Patient was given IM morphine for pain. CT scan of the head, C-spine, facial bones obtained. Radiography Diagnostic Testing: Clinical Impression(s) from Imaging Studies Brain CT 12/25/21 11:42 IMPRESSION: 1. Right facial injury. 2. No evidence of intracranial or calvarial abnormality. Electronically Signed: Dejon Sutton DO at 12:23 EST Reading Location ID and State: [employer] [facility] [employer] Tel [phone], Service support , Facial/Sinus 12/25/21 11:42 IMPRESSION: 1. Fracture the anterior wall of the right maxillary sinus with opacification of the sinus. 2. Marked soft tissue edema from the maxilla to the right shoulder. 3. Normal orbits and orbital contents. 4. No other evidence of facial bone fracture. Electronically Signed: Dejon Sutton DO at 12:21 EST Reading Location ID and State: [employer] [facility] [employer] [facility] [employer] Tel [phone], Service support , Radiology Impression Brain CT 12/25/21 11:42 IMPRESSION: 1. Right facial injury. 2. No evidence of intracranial or calvarial abnormality. Electronically Signed: Dejon Sutton DO at 12:23 EST Reading Location ID and State: [employer] [facility] [employer] [facility] [employer] Tel [phone], Service support , Facial/Sinus 12/25/21 11:42 IMPRESSION: 1. Fracture the anterior wall of the right maxillary sinus with opacification of the sinus. 2. Marked soft tissue edema from the maxilla to the right shoulder. 3. Normal orbits and orbital contents. 4. No other evidence of facial bone fracture. Electronically Signed: Dejon Sutton DO at 12:21 EST Reading Location ID and State: [address] [place] [address] Tel [phone], Service support , CT cervical spine IMPRESSION: Mild degenerative changes without fracture or subluxation. Note: MRI is more sensitive than CT in detecting cord injury, ligamentous injury and epidural hematoma. If there is continued clinical concern for any of these entities, MRI should be considered. Treatment and Re-Evaluation Comments:: Repeat evaluation patient resting comfortably. CT scans reviewed with patient and at bedside. He has a fracture of the anterior wall of the right maxillary sinus. No other acute fractures are noted. Right facial wound was cleansed and sealed with Dermabond. Patient be treated with [place] and Augmentin. Patient is referred to ENT for follow-up. Discharge Plan Triage Chief Complaint: Fall ED Provider: Sosa Srivastava Dx/Rx/DC Orders Clinical Impression: Fracture of maxillary sinus Instructions: Facial Fracture Prescriptions: New hydrocodone-acetaminophen 5-325 mg tablet 1 tab PO Q6H PRN (Reason: pain) 3 Days Qty: 10 RF: 0 amoxicillin-pot clavulanate 875-125 mg tablet 1 tab PO BID Qty: 20 RF: 0 No Action finasteride 5 mg tablet 5 mg PO QDAY RF: 0 glimepiride 2 mg tablet 2 mg PO BID RF: 0 lisinopril 5 mg tablet 10 mg PO DAILY RF: 0 docusate sodium [Colace] 100 mg capsule 100 mg PO BID PRN (Reason: Constipation) RF: 0 aspirin [Adult Low Dose Aspirin] 81 mg tablet,delayed release (DR/EC) 81 mg PO DAILY RF: 0 prednisone 1 mg tablet 2 mg PO DAILY RF: 0 Ultra CoQ10 75 mg capsule 200 mg PO BID RF: 0 metformin 500 MG tablet 1,000 mg PO BID RF: 0 tamsulosin 0.4 MG capsule 0.4 mg PO DAILY RF: 0 zinc 100 mg Tablet 200 mg PO DAILY RF: 0 PreserVision AREDS [id number] cebf-pj-lpsl Capsule 1 cap PO BID RF: 0 Farxiga 10 mg Tablet 10 mg PO QHS RF: 0 carvedilol [Coreg] 6.25 mg tablet 6.25 mg PO BID Qty: 180 RF: 3 atorvastatin 10 mg tablet See Rx Instructions .ROUTE .COMPLEX Qty: 90 RF: 3 Primary Care Provider: Scar Hdz Referrals: Scout Garcia MD [STAFF PHYSICIAN] - 5-7 Days Scar Hdz MD [Primary Care Provider] - Disposition Disposition: Home, Self Care
[2021-12-25] MEDS: Morphine 4 MG/ML Syringe IM (11:51)
[2021-12-25 13:13] VITALS: BP 129/76; PULSE 65; RESP 16; O2SAT 98
[2021-12-25] MEDS: Amox/Clavulanate 875 MG Tablet PO (13:13)
--- NOTE | 2021-12-26 17:01 | CM.ED ---
ER DC F/u Call: Patient seen in ER 2.6.22 for slip and fall on Ice, hitting face on wood that he was carrying without LOC. He as a fracture of the anterior wall of the right maxillary sinus. 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 Patient states that he is doing better this afternoon from this morning. States that with the swelling, he was not able to see out of his right eye this morning and now able to open his eye and see- improving. Denies any other issues/concerns and states [facility] did great. Adina Andrade, YAHIRCM
== END 2021-12-25 13:16 | disposition home or self-care (01) ==
PROVIDERS: Emergency Provider Emergency Medicine; PCP Family Medicine; Visit Provider Emergency Medicine
DX: S02.40CA Maxillary fracture, right side, initial encounter for closed fracture (principal); E11.9 Type 2 diabetes mellitus without complications; W00.0XXA Fall on same level due to ice and snow, initial encounter; I25.10 Atherosclerotic heart disease of native coronary artery without angina pectoris; I10 Essential (primary) hypertension; E78.5 Hyperlipidemia, unspecified; E78.00 Pure hypercholesterolemia, unspecified; G47.33 Obstructive sleep apnea (adult) (pediatric); Z79.82 Long term (current) use of aspirin; Z79.84 Long term (current) use of oral hypoglycemic drugs; Z79.52 Long term (current) use of systemic steroids; Z79.899 Other long term (current) drug therapy; Z95.1 Presence of aortocoronary bypass graft
CPT/HCPCS: 70450; 70486; 72125; 96372; 99283

== ENCOUNTER 2022-02-02 08:02 | Outpatient (CLI) | payer MEDICARE, SELFPAY ==
--- NOTE | 2022-02-02 08:12 | MRI_ITS ---
STUDY: MRI BRAIN WITH AND WITHOUT CONTRAST (ATTENTION INTERNAL AUDITORY CANALS - I.A.C.''s) REASON FOR EXAM: Male, 71 years old. BILATERAL HEARING LOSS TECHNIQUE: Standardized multiplanar fat and water weighted pulse sequences were obtained. ml of 15CC DOTAREM contrast material was administered intravenously for the contrast portion of the examination. COMPARISON: Head CT dated December FINDINGS: Normal bilateral temporal bones. Normal bilateral internal auditory canals. There is no demonstrated intracanalicular or cisternal vestibular schwannoma (acoustic neuroma). There is no enhancement of the bilateral VIIth or VIIIth cranial nerves. Normal bilateral cochlea, vestibules and semicircular canals. No vestibular enlargement demonstrated. There is mild cerebral atrophy with widening of the extra-axial spaces and ventricular dilatation. Normal white matter tracts of the supratentorial brain. There is no evidence for recent intracranial ischemia or other cause of cytotoxic edema on diffusion weighted imaging (DWI). Normal bilateral frontal poles, and orbital frontal and gyrus recti of the frontal lobes. Normal bilateral temporal tips of the temporal lobes. There are no white matter shear injuries (diffuse axonal injuries). There are no parenchymal hemorrhages or hematomas. There are no findings to suggest prior closed head parenchymal injury of the brain. Normal bilateral basal ganglia. Normal thalami. Normal flow voids within the major intracranial circulation suggesting patency by spin echo criteria. Normal venous enhancement. There is no enhancing intra-axial or extra-axial abnormality. There is no extra-axial fluid accumulation. Normal sella turcica, pituitary gland, infundibular stalk, optic chiasm and hypothalamus. Normal tectal plate and pineal gland. Normal midbrain, radha and medulla. Normal cerebellum. Normal basal cisterns. No demonstrated orbital abnormality, within the constraints of a routine brain study. Normal visualized paranasal sinuses. Normal calvarium and skull base. Normal visualized soft tissue structures. Normal visualized upper cervical spine. Small mucous retention cyst of the right maxillary sinus noted. MRI/Brain W/WO Contrast IMPRESSION: 1. Involutional changes of the brain, as described above. 2. No acute infarct or focal or suspicious signal abnormality 3. Normal unenhanced and enhanced MRI of the bilateral internal auditory canals (I.A.C''s). Electronically Signed: Stephen Zhang MD at 15:06 EDT ,
[2022-02-02 08:31] LABS: CREATININE FINGERSTICK < 0.6 mg/dL (0.70-1.30); EGFR FINGERSTICK > 60.0000 mL/min (>60)
== END 2022-02-02 23:59 | disposition home or self-care (01) ==
PROVIDERS: PCP Family Medicine; Visit Provider Otolaryngology
DX: H91.93 Unspecified hearing loss, bilateral (principal)
CPT/HCPCS: 70553; A9575

== ENCOUNTER → 2022-04-13 | Outpatient (CLI) | payer MEDICARE, SELFPAY ==
--- NOTE | 2022-04-13 14:06 | CDU_ITS ---
Reason For Study: carotid stenosis Rt. Velocities/BP Lt. Velocities/BP Prox CCA 108.6/14.7 cm/sec. Prox CCA 132.1/15.2 cm/sec. Mid CCA 148.5/20.6 cm/sec. Mid CCA 159.5/17.0 cm/sec. Dist CCA 112.0/15.2 cm/sec. Dist CCA 137.5/15.2 cm/sec. Prox ICA 96.2/17.6 cm/sec. Prox ICA 104.7/20.6 cm/sec. Mid ICA 115.6/20.6 cm/sec. Mid ICA 128.4/24.3 cm/sec. Dist ICA 85.1/26.2 cm/sec. Dist ICA 95.5/24.3 cm/sec. Rt. ICA/CCA = .8. Lt. ICA/CCA = .8. Prox ECA 298.3/13.9 cm/sec. Prox ECA 311.2/10.7 cm/sec. Rt. Vert. 65.4/9.0 cm/sec. Lt. Vert. 70.4/13.9 cm/sec. Right Extracranial There is homogeneous, smooth atherosclerotic plaque noted in the right common carotid artery. There is heterogeneous, irregular atherosclerotic plaque noted in the right internal carotid artery. There is heterogeneous, irregular atherosclerotic plaque noted in the right external carotid artery. Antegrade flow is noted in the right vertebral artery. Left Extracranial There is heterogeneous, irregular atherosclerotic plaque noted in the left common carotid artery. There is heterogeneous, irregular atherosclerotic plaque noted in the left internal carotid artery. There is heterogeneous, irregular atherosclerotic plaque noted in the left external carotid artery. Antegrade flow is noted in the left vertebral artery. Procedure Carotid Duplex 27642. This is a Carotid Duplex examination using B-mode, color flow and specral Doppler. The exam was diagnostic. Exam performed in department. VL/Carotid Duplex Ultrasound Interpretation Summary Irregular calcific plague proximal right internal carotid with <50% stenosis Greater than 50% stenosis right external carotid Irregular calcific plague at the proximal left internal carotid with 50-69% ronnie nosis Greater thant 50% stenosis left external carotid Patent,antegrade vertebrals bilaterally Slight progression of stenosis left internal carotid from the previous exam of 01/06/21 Ordering Physician: Lizandro Zaidi Performed By: Edward Awan RVT
== END | disposition home or self-care (01) ==
LOC: CVS 14:05
PROVIDERS: PCP Family Medicine; Referring Provider Surgery; Visit Provider Surgery
DX: I65.23 Occlusion and stenosis of bilateral carotid arteries (principal)
CPT/HCPCS: 93880

== ENCOUNTER → 2022-05-11 | Outpatient (CLI) | payer MEDICARE, SELFPAY ==
--- NOTE | 2022-05-11 08:53 | AAAS_ITS ---
Reason For Study: screening for AAA Aorta Measurements Aorta Doppler Measurements Proximal aorta measures1.57 x 1.5cm. in cross- Peak systolic flow velocities within the proximal sectional axis. aorta measure 99.0 cm/sec. Proximal aorta measures1.48cm. in longitudinal Peak systolic flow velocities within the mid aorta axis. measure 109.9 cm/sec. Mid aorta measures1.38 x 1.45cm. in cross- Peak systolic flow velocities within the distal sectional axis. aorta measure 117.2 cm/sec. Mid aorta measures1.45cm. in longitudinal axis. Distal aorta measures1.25 x 1.23cm. in cross- sectional axis. Distal aorta measures1.26cm. in longitudinal axis. Left Iliac Artery Left iliac artery measures .79 x .81 cm. in the cross-sectional axis. Left iliac artery measures .76 cm. in the longitudinal axis. Peak systolic velocity in the left iliac artery measures 115.4 cm/sec. Right Iliac Artery Right iliac artery measures .69 x .67 cm. in the cross-sectional axis. Right iliac artery measures .67 cm. in the longitudinal axis. Peak systolic velocity in the right iliac artery measures 119.1 cm/sec. Procedure Aorta IVC Iliac vasculature or bypass grafts 27662. The exam was diagnostic. Exam performed in department. VL/AAA Screening Interpretation Summary Maximal aortic dimensions proximally at 1.57 x 1.5 cm which is normal. Normal f low rate of 99 cm/s in the proximal abdominal aorta. Normal left common iliac artery 0.79 x 0.81 cm Normal right common iliac artery measuring 0.69 x 0.67 cm Ordering Physician: Lizandro Zaidi Performed By: Edward Awan RVJob
== END | disposition home or self-care (01) ==
LOC: CVS 08:51
PROVIDERS: PCP Family Medicine; Referring Provider Surgery; Visit Provider Surgery
DX: Z13.6 Encounter for screening for cardiovascular disorders (principal)
CPT/HCPCS: 76706

== ENCOUNTER → 2022-09-11 | Outpatient (CLI) | payer MEDICARE, SELFPAY ==
[2022-09-11 13:07] LABS: Anion Gap 6 (5-15); BUN 17 mg/dL (7-18); BUN/Creat Ratio 15.5 RATIO (10-20); Calcium,Total 8.9 mg/dL (8.5-10.1); Chloride 104 mmol/L (98-107); Cholesterol 128 mg/dL (200); EST Glomerular Filtration Rate 70 mL/min (>60); Est Glom Filt Rate - Afr Amer 84 mL/min (>60); Glucose 144 mg/dL (74-106); High Density Lipoprotein 37 mg/dL; Potassium 4.6 mmol/L (3.5-5.1); Sodium Level 136 mmol/L (136-145); Triglycerides 84 mg/dL; Very Low Density Lipoprotein 17 mg/dL (5-40)
[2022-09-11 14:04] LABS: Hemoglobin A1c 7.6 % (3.8-5.6)
[2022-09-11 14:09] LABS: Microalbumin,Random Urine 15.4 mg/L (NO RANGE EST.); Microalbumin:Creatinine Ratio 15.1 mg/g CRE (<30 mg/g CRE)
== END | disposition home or self-care (01) ==
PROVIDERS: PCP Family Medicine; Visit Provider Family Medicine
DX: E11.9 Type 2 diabetes mellitus without complications (principal)
CPT/HCPCS: 36415; 80048; 80061; 82043; 82570; 83036

== ENCOUNTER → 2022-09-19 | Outpatient (CLI) | payer MEDICARE, SELFPAY ==
[2022-09-19 16:41] LABS: PSA,Total - Annual Screen 5.28 ng/mL (0.00-4.00)
== END | disposition home or self-care (01) ==
LOC: LAB 13:46
PROVIDERS: PCP Family Medicine; Visit Provider Registered Nurse
DX: Z12.5 Encounter for screening for malignant neoplasm of prostate (principal)
CPT/HCPCS: 36415; 84153; G0103

== ENCOUNTER → 2022-10-24 | Outpatient (CLI) | payer MEDICARE, SELFPAY ==
--- NOTE | 2022-10-24 | IMM_PTH ---
PATIENT: CHICHI GERARD LOC: [facility] U#:[id number] AGE/SX: 72/M ROOM: RE10/24/[address]: Dr. Cirilo Moreira MD : 1950 BED: DIS: 10/24/2022 SPEC #: [id number] RECD: 10/26/22 13:45 STATUS: FRANCISCO JAVIER REQ #: [id number] MATTHIAS: 10/24/22 00:[address]: Cirilo Moreira DEPT: IMMUNOHISTOCHEMISTRY RECD BY: Lupe Foster ENTERED: 10/26/22 13:46 SP TYPE: IMMUNO OTHR DR: Dr. Scar Hdz MD Tissues: A - PROSTATE RIGHT B - PROSTATE RIGHT C - PROSTATE RIGHT F - PROSTATE LEFT Procedures: 34BE12 (add) P40 (add) 34BE12 (initial) PHYSICIAN & INSTITUTION [place] [phone] SPECIMEN INFORMATION: Tissue Source: A - Right apex, B - Right mid, C - Right base, F - Left base Clinical Info: Elevated PSA Specimen Number: [id number] A-C & F CPT code: 41112, 03209 x7 METHODOLOGY: Deparaffinized sections of prefer/formalin-fixed tissue or PAP/DQ stained slides are incubated with monoclonal/polyclonal antibodies/oligonucleotide probes. Localization is made via biotin free immunoperoxidase method. Appropriate controls are performed and reacted as expected. Results on target cell population are indicated in the following table: RESULTS: ANTIBODY / CLONE RESULT Block A P40 (BC28) positive 34BE12 (34BE12) positive Block B P40 (BC28) positive 34BE12 (34BE12) positive Block C P40 (BC28) positive 34BE12 (34BE12) positive Block F P40 (BC28) positive 34BE12 (34BE12) positive These tests were developed and their performance characteristics determined by [facility]. They may not have been cleared or approved by the U.[place]. Food and Drug Administration. The FDA has determined that such clearance or approval is not necessary. The above immunohistochemical/dualISH markers are ordered and reviewed by the Pathologist. INTERPRETATION: A. Right prostate, apex, core biopsy: Benign prostatic tissue. B. Right prostate, mid, core biopsy: Benign prostatic tissue. C. Right prostate, base, core biopsy: Benign prostatic tissue. F. Left prostate, base, core biopsy: Benign prostatic tissue. AM:sascha 10/27/2022
--- NOTE | 2022-10-24 08:00 | PROSBIL_PTH ---
PATIENT: CHICHI GERARD LOC: [facility] U#:[id number] AGE/SX: 72/M ROOM: RE10/24/[address]: Dr. Cirilo Moreira MD : 1950 BED: DIS: 10/24/2022 SPEC #: [id number] RECD: 10/24/22 16:21 STATUS: FRANCISCO JAVIER CAMACHO #: [id number] MATTHIAS: 10/24/22 08:[address]: Cirilo Moreira DEPT: SURGICAL PATHOLOGY RECD BY: Yulissa Ventura ENTERED: 10/25/22 07:48 SP TYPE: PROST BX BRITNEY DR: Dr. Scar Hdz MD Tissues: A - PROSTATE RIGHT B - PROSTATE RIGHT C - PROSTATE RIGHT D - PROSTATE LEFT E - PROSTATE LEFT F - PROSTATE LEFT Procedures: PROSTATE BX HEADER OPERATION: Prostate biopsy PRE-OP DIAGNOSIS: Elevated PSA TISSUE SUBMITTED: A - Right apex, B - Right mid, C - Right base, D - Left apex, E - Left mid, F - Left base MICROSCOPIC DIAGNOSIS A. Right prostate, apex, core biopsy: Chronic inflammation and focal glandular atrophy. See comment. B. Right prostate, mid, core biopsy: Chronic inflammation and focal glandular atrophy. See comment. C. Right prostate, base, core biopsy: Glandular atrophy. Mild chronic inflammation. See comment. D. Left prostate, apex, core biopsy: Chronic inflammation and focal glandular atrophy. E. Left prostate, mid, core biopsy: Chronic inflammation and glandular atrophy. F. Left prostate, base, core biopsy: Glandular atrophy and chronic inflammation. See comment. AM:sascha 10/26/2022 COMMENT A-C & F - Immunohistochemistry ([id number]) supports the above diagnosis. MICROSCOPIC DESCRIPTION Slides are reviewed. GROSS DESCRIPTION A - Received is one container designated prostate, right apex. The specimen consists of two elongated fragments of light kc-white soft tissue measuring 1.5 and 2.2 cm in length and 0.1 cm in diameter. The specimen is totally submitted in one cassette. B - Received is one container designated prostate, right mid. The specimen consists of two elongated fragments of light kc-white soft tissue measuring 1 and 1.8 cm in length and 0.1 cm in diameter. The specimen is totally submitted in one cassette. C - Received is one container designated prostate, right base. The specimen consists of two elongated fragments of light kc-white soft tissue each measuring 1 cm in length and 0.1 cm in diameter. The specimen is totally submitted in one cassette. D - Received is one container designated prostate, left apex. The specimen consists of two elongated fragments of light kc-white soft tissue measuring 0.8 and 1.2 cm in length and 0.1 cm in diameter. The specimen is totally submitted in one cassette. E - Received is one container designated prostate, left mid. The specimen consists of two elongated fragments of light kc-white soft tissue each measuring 1 cm in length and 0.1 cm in diameter. The specimen is totally submitted in one cassette. F - Received is one container designated prostate, left base. The specimen consists of two elongated fragments of light kc-white soft tissue each measuring 1 cm in length and 0.1 cm in diameter. The specimen is totally submitted in one cassette. / SJ:rg 10/25/2022 TC:3 CPT: G0146
== END | disposition home or self-care (01) ==
LOC: LABSPEC 16:35
PROVIDERS: PCP Family Medicine; Visit Provider Urology
DX: N41.9 Inflammatory disease of prostate, unspecified (principal)
CPT/HCPCS: 88305; 88341; 88342; G0416

== ENCOUNTER → 2023-02-23 | Outpatient (CLI) | payer MEDICARE, SELFPAY ==
[2023-02-23 13:14] LABS: ALB/GLOB Ratio 1.1 RATIO (0.9-2.4); AST(SGOT) 18 U/L (15-37); Alanine Aminotransfer ALT/SGPT 20 U/L (16-61); Albumin, Serum 3.7 g/dL (3.2-5.0); Alkaline Phosphatase 46 U/L (45-117); Anion Gap 8 (5-15); BUN 30 mg/dL (7-18); BUN/Creat Ratio 26.8 RATIO (10-20); Chloride 105 mmol/L (98-107); Cholesterol 146 mg/dL (200); Creatinine, Serum 1.12 mg/dL (0.70-1.30); EST Glomerular Filtration Rate 68 mL/min (>60); Est Glom Filt Rate - Afr Amer 82 mL/min (>60); Globulin 3.3 g/dL (2.2-4.2); Glucose 94 mg/dL (74-106); High Density Lipoprotein 38 mg/dL; Potassium 4.6 mmol/L (3.5-5.1); Sodium Level 137 mmol/L (136-145); Triglycerides 73 mg/dL; Very Low Density Lipoprotein 15 mg/dL (5-40)
== END | disposition home or self-care (01) ==
LOC: MFPLAB 11:18
PROVIDERS: PCP Family Medicine; Referring Provider Family Medicine; Visit Provider Family Medicine
DX: E78.5 Hyperlipidemia, unspecified (principal)
CPT/HCPCS: 36415; 80053; 80061

== ENCOUNTER → 2023-02-26 | Outpatient (CLI) | payer MEDICARE, SELFPAY ==
--- NOTE | 2023-02-26 13:48 | CDU_ITS ---
Reason For Study: Carotid stenosis Rt. Velocities/BP Lt. Velocities/BP Prox CCA 99.8/16.3 cm/sec. Prox CCA 103.6/16.8 cm/sec. Mid CCA 115.8/18.8 cm/sec. Mid CCA 102.3/18.8 cm/sec. Dist CCA 106/18.8 cm/sec. Dist CCA 104.7/20 cm/sec. Prox ICA 95.5/17 cm/sec. Prox ICA 88.2/22.5 cm/sec. Mid ICA 90/18.8 cm/sec. Mid ICA 128.4/26.1 cm/sec. Dist ICA 75.4/18.8 cm/sec. Dist ICA 112/27.9 cm/sec. Rt. ICA/CCA = 0.90. Lt. ICA/CCA = 1.24. Prox ECA 252.2/11.1 cm/sec. Prox ECA 202.9/6 cm/sec. Rt. Vert. 53.1/11.3 cm/sec. Lt. Vert. 59/13.3 cm/sec. Right Extracranial There is homogeneous, smooth atherosclerotic plaque noted in the right common carotid artery. There is heterogeneous, irregular atherosclerotic plaque noted in the right internal carotid artery. There is heterogeneous, irregular atherosclerotic plaque noted in the right external carotid artery. Antegrade flow is noted in the right vertebral artery. Left Extracranial There is heterogeneous, irregular atherosclerotic plaque noted in the left common carotid artery. There is heterogeneous, irregular atherosclerotic plaque noted in the left internal carotid artery. There is heterogeneous, irregular atherosclerotic plaque noted in the left external carotid artery. Antegrade flow is noted in the left vertebral artery. Procedure Carotid Duplex [id number]. This is a Carotid Duplex examination using B-mode, color flow and specral Doppler. Exam performed in department. VL/Carotid Duplex Ultrasound Interpretation Summary Irregular calcific plague proximal right internal carotid with <50% stenosis Greater than 50% stenosis right external carotid Irregular calcific plague at the proximal left internal carotid with 50-69% ronnie nosis Greater thant 50% stenosis left external carotid Patent,antegrade vertebrals bilaterally No change from the previous examination of April 13, 2022 Ordering Physician: Lizandro Zaidi Referring Physician: Scar Hdz Performed By: Janie Temple RVT
== END | disposition home or self-care (01) ==
LOC: CVS 13:48
PROVIDERS: PCP Family Medicine; Referring Provider Surgery; Visit Provider Surgery
DX: I65.23 Occlusion and stenosis of bilateral carotid arteries (principal)
CPT/HCPCS: 93880

== ENCOUNTER → 2023-04-27 | Outpatient (CLI) | payer MEDICARE, SELFPAY | END | disposition home or self-care (01) | LOC: LAB 15:08 | PROVIDERS: PCP Family Medicine; Referring Provider Urology; Visit Provider Urology | DX: R97.20 Elevated prostate specific antigen [PSA] (principal) | CPT/HCPCS: 36415; 84153 ==

== ENCOUNTER → 2023-11-30 | Outpatient (CLI) | payer MEDICARE, SELFPAY ==
[2023-11-30 12:55] LABS: ALB/GLOB Ratio 1.1 RATIO (0.9-2.4); AST(SGOT) 16 U/L (15-37); Alanine Aminotransfer ALT/SGPT 15 U/L (16-61); Albumin, Serum 3.7 g/dL (3.2-5.0); Alkaline Phosphatase 47 U/L (45-117); Anion Gap 6 (5-15); BUN 26 mg/dL (7-18); BUN/Creat Ratio 20.6 RATIO (10-20); Calcium,Total 8.9 mg/dL (8.5-10.1); Chloride 103 mmol/L (98-107); Cholesterol 116 mg/dL (200); Creatinine, Serum 1.26 mg/dL (0.70-1.30); EST Glomerular Filtration Rate 59 mL/min (>60); Est Glom Filt Rate - Afr Amer 72 mL/min (>60); Globulin 3.4 g/dL (2.2-4.2); Glucose 221 mg/dL (74-106); High Density Lipoprotein 38 mg/dL; Potassium 4.7 mmol/L (3.5-5.1); Protein, Total 7.1 g/dL (6.4-8.2); Sodium Level 135 mmol/L (136-145); Triglycerides 109 mg/dL; Very Low Density Lipoprotein 22 mg/dL (5-40)
[2023-11-30 13:38] LABS: Microalbumin,Random Urine 6.4 mg/L (NO RANGE EST.); Microalbumin:Creatinine Ratio 13.9 mg/g CRE (<30 mg/g CRE)
== END | disposition home or self-care (01) ==
LOC: MTLAB 10:33
PROVIDERS: PCP Family Medicine; Referring Provider Family Medicine; Visit Provider Family Medicine
DX: E11.9 Type 2 diabetes mellitus without complications (principal)
CPT/HCPCS: 36415; 80053; 80061; 82043; 82570

== ENCOUNTER → 2024-02-18 | Outpatient (CLI) | payer MEDICARE, SELFPAY ==
--- NOTE | 2024-02-18 08:31 | CDU_ITS ---
Reason For Study: Bilateral Carotid Stenosis Rt. Velocities/BP Lt. Velocities/BP Prox CCA 118/16 cm/sec. Prox CCA 113/16 cm/sec. Mid CCA 104/18 cm/sec. Mid CCA 136/25 cm/sec. Dist CCA 97/18 cm/sec. Dist CCA 106/18 cm/sec. Prox ICA 95/20 cm/sec. Prox ICA 89/22 cm/sec. Mid ICA 104/22 cm/sec. Mid ICA 138/25 cm/sec. Dist ICA 86/23 cm/sec. Dist ICA 102/27 cm/sec. Rt. ICA/CCA = 1.0. Lt. ICA/CCA = 1.01. Prox ECA 290/8 cm/sec. Prox ECA 274/8 cm/sec. Rt. Vert. 95/11 cm/sec. Lt. Vert. 64/16 cm/sec. Right Extracranial There is heterogeneous, irregular atherosclerotic plaque noted in the right common carotid artery. There is heterogeneous, irregular atherosclerotic plaque noted in the right internal carotid artery. There is heterogeneous, irregular atherosclerotic plaque noted in the right external carotid artery. Antegrade flow is noted in the right vertebral artery. Left Extracranial There is heterogeneous, irregular atherosclerotic plaque noted in the left common carotid artery. There is heterogeneous, irregular atherosclerotic plaque noted in the left internal carotid artery. There is heterogeneous, irregular atherosclerotic plaque noted in the left external carotid artery. Antegrade flow is noted in the left vertebral artery. Procedure Carotid Duplex 40840. This is a Carotid Duplex examination using B-mode, color flow and specral Doppler. Exam performed in department. VL/Carotid Duplex Ultrasound Interpretation Summary Heterogenous calcific plaque with shadowing at the proximal right internal flores tid artery with less than 50% stenosis Greater than 50% stenosis right external carotid artery Heterogenous plaque at the proximal left internal carotid artery with less than 50% stenosis Greater than 50% stenosis left external carotid artery Patent and antegrade vertebral arteries bilaterally This utilizes a new interpretive scale and so there is no significant change fr om the previous examination of February 26, 2023 Ordering Physician: Lizandro Zaidi Referring Physician: Scar Hdz Performed By: Minal Bullock RDCS, RVT
== END | disposition home or self-care (01) ==
LOC: CVS 08:30
PROVIDERS: PCP Family Medicine; Referring Provider Surgery; Visit Provider Surgery
DX: I65.23 Occlusion and stenosis of bilateral carotid arteries (principal)
CPT/HCPCS: 93880

== ENCOUNTER → 2024-03-06 | Outpatient (CLI) | payer MEDICARE, SELFPAY ==
--- NOTE | 2024-03-06 14:00 | ECHOD_ITS ---
Reason For Study: ASHD Procedure This was a 2D Doppler, Color Flow transthoracic echocardiogram. Exam performed in department. Left Ventricle Normal size and thickness. The left ventricular ejection fraction is 65 %. Normal diastology for age. Right Ventricle Normal right ventricle. Atria The left atrium is moderately enlarged. Normal right atrium. Mitral Valve Mild focal mitral valve calcification. Tricuspid Valve Trivial tricuspid valve insufficiency. Normal pulmonary artery pressure. Aortic Valve Mild diffuse aortic valve calcification. Mild aortic stenosis. Pulmonic Valve The pulmonic valve is not well visualized. Great Vessels Normal sized aortic root. Pericardium/Pleural No pericardial effusion. MMode/2D Measurements & Calculations LVIDd: 4.4 cm IVSd: 0.87 cm LVOT diam: 2.0 cm LVIDs: 2.8 cm LVPWd: 0.96 cm LVOT area: 3.2 cm2 RVDd: 3.3 cm FS: 35.3 % Ao root diam: 3.3 cm LAV(MOD-bp): 56.4 ml LVAd ap4: 20.3 cm2 LAV(MOD-bp) Indexed: 28.3 ml/m2 LVLd ap4: 6.7 cm LAV(MOD-sp2): 57.3 ml EDV(MOD-sp4): 52.5 ml LAV(MOD-sp4): 53.4 ml EDV(sp4-el): 51.8 ml LVAs ap4: 10.6 cm2 LVLs ap4: 5.4 cm ESV(MOD-sp4): 19.0 ml ESV(sp4-el): 17.6 ml EF(MOD-sp4): 63.9 % EF(sp4-el): 66.0 % LVAd ap2: 17.5 cm2 SV(MOD-sp4): 33.6 ml SV(MOD-sp2): 24.4 ml LVLd ap2: 7.1 cm EDV(MOD-sp2): 36.6 ml EDV(sp2-el): 36.8 ml LVAs ap2: 9.1 cm2 LVLs ap2: 6.2 cm ESV(MOD-sp2): 12.2 ml ESV(sp2-el): 11.5 ml EF(MOD-sp2): 66.6 % SV(sp4-el): 34.2 ml LA dimension(2D): 4.5 cm LA A4 area: 18.7 cm2 RA A4 area: 15.8 cm2 TAPSE: 1.7 cm Time Measurements MV dec time: 0.27 sec Doppler Measurements & Calculations MV E max cruz: 71.2 cm/sec Lat Peak E' Cruz: 8.2 cm/sec Med Peak E' Cruz: 8.2 cm/sec MV A max cruz: 76.6 cm/sec E/E' lat: 8.7 E/E' med: 8.7 MV E/A: 0.93 MV V2 max: 88.4 cm/sec MV P1/2t max cruz: 81.2 cm/sec Ao V2 max: 222.9 cm/sec MV max P.1 mmHg MV P1/2t: 87.3 msec Ao max P.9 mmHg MV V2 mean: 52.6 cm/sec Ao V2 mean: 155.0 cm/sec MV mean P.2 mmHg MV dec slope: 272.5 cm/sec2 Ao mean P.1 mmHg MV V2 VTI: 21.2 cm MVA(P1/2t): 2.5 cm2 Ao V2 VTI: 46.7 cm AV (velocity ratio): 0.65 MVA(VTI): 4.7 cm2 CHUCK(I,D): 2.1 cm2 CHUCK(V,D): 2.2 cm2 LV V1 max: 151.9 cm/sec SV(LVOT): 99.2 ml PA V2 max: 91.6 cm/sec LV V1 max P.2 mmHg PA V2 mean: 68.0 cm/sec LV V1 mean P.4 mmHg LV V1 mean: 111.1 cm/sec LV V1 VTI: 30.5 cm TR max cruz: 273.1 cm/sec TR max P.8 mmHg ECHO/Echo Complete Interpretation Summary The left ventricular ejection fraction is 65 %. The left atrium is moderately enlarged. Mild diffuse aortic valve calcification. Mild aortic stenosis. Ordering Physician: Francheska Trevizo Referring Physician: Scar Hdz Performed By: Melly Fair RDCS, RVT
== END | disposition home or self-care (01) ==
LOC: CVS 13:58
PROVIDERS: PCP Family Medicine; Referring Provider Physician Assistant Medical; Visit Provider Physician Assistant Medical
DX: I25.10 Atherosclerotic heart disease of native coronary artery without angina pectoris (principal); I70.0 Atherosclerosis of aorta
CPT/HCPCS: 93306

== ENCOUNTER → 2024-04-29 | Outpatient (CLI) | payer MEDICARE, SELFPAY ==
[2024-04-29 11:07] LABS: PSA,Total- Diagnostic 2.54 ng/mL (0.0-4.0)
== END | disposition home or self-care (01) ==
LOC: LAB 10:17
PROVIDERS: PCP Family Medicine; Referring Provider Urology; Visit Provider Urology
DX: R97.20 Elevated prostate specific antigen [PSA] (principal)
CPT/HCPCS: 36415; 84153

== ENCOUNTER → 2024-06-10 | Outpatient (CLI) | payer MEDICARE, SELFPAY ==
[2024-06-10 11:21] LABS: ALB/GLOB Ratio 1.1 RATIO (0.9-2.4); AST(SGOT) 18 U/L (15-37); Alanine Aminotransfer ALT/SGPT 24 U/L (16-61); Albumin, Serum 3.8 g/dL (3.2-5.0); Alkaline Phosphatase 44 U/L (45-117); Anion Gap 6 (5-15); BUN 19 mg/dL (7-18); BUN/Creat Ratio 16.4 RATIO (10-20); Chloride 105 mmol/L (98-107); Cholesterol 142 mg/dL (200); Creatinine, Serum 1.16 mg/dL (0.70-1.30); EST Glomerular Filtration Rate 65 mL/min (>60); Est Glom Filt Rate - Afr Amer 79 mL/min (>60); Globulin 3.5 g/dL (2.2-4.2); Glucose 111 mg/dL (74-106); High Density Lipoprotein 47 mg/dL; Potassium 4.5 mmol/L (3.5-5.1); Protein, Total 7.3 g/dL (6.4-8.2); Sodium Level 137 mmol/L (136-145); Triglycerides 87 mg/dL; Very Low Density Lipoprotein 17 mg/dL (5-40)
== END | disposition home or self-care (01) ==
LOC: LAB 09:57
PROVIDERS: PCP Family Medicine; Visit Provider Family Medicine
DX: E11.9 Type 2 diabetes mellitus without complications (principal)
CPT/HCPCS: 36415; 80053; 80061

== ENCOUNTER → 2024-09-29 | Outpatient (CLI) | payer MEDICARE, SELFPAY ==
[2024-09-29 15:34] LABS: Color, Urine Yellow (Yellow); Glucose, Dipstick 1000 mg/dl (Normal); Ketone-Dipstick 5 mg/dl (Negative); Leukocyte Esterase-Dipstick 500 /ul (Negative); Nitrite-Dipstick Positive (Negative); Occult Blood-Urine 25 /ul (Negative); Protein-Dipstick 30 mg/dl (Negative); Urine Bilirubin Dipstick Negative (Negative); Urine Clarity Cloudy (Clear); Urine Urobilinogen Normal (Normal)
== END | disposition home or self-care (01) ==
LOC: LABSPEC 12:14
PROVIDERS: PCP Family Medicine; Visit Provider Family Medicine
DX: R39.9 Unspecified symptoms and signs involving the genitourinary system (principal)
CPT/HCPCS: 81002; 87077; 87086; 87088; 87186

== ENCOUNTER → 2024-11-24 | Outpatient (CLI) | payer MEDICARE, SELFPAY ==
[2024-11-24 12:26] LABS: ALB/GLOB Ratio 1.1 RATIO (0.9-2.4); AST(SGOT) 15 U/L (15-37); Alanine Aminotransfer ALT/SGPT 16 U/L (16-61); Albumin, Serum 3.7 g/dL (3.2-5.0); Alkaline Phosphatase 46 U/L (45-117); Anion Gap 3 (5-15); BUN 23 mg/dL (7-18); BUN/Creat Ratio 20.2 RATIO (10-20); Calcium,Total 8.9 mg/dL (8.5-10.1); Chloride 106 mmol/L (98-107); Cholesterol 128 mg/dL (200); Creatinine, Serum 1.14 mg/dL (0.70-1.30); EST Glomerular Filtration Rate 66 mL/min (>60); Est Glom Filt Rate - Afr Amer 80 mL/min (>60); Globulin 3.3 g/dL (2.2-4.2); Glucose 93 mg/dL (74-106); High Density Lipoprotein 43 mg/dL; Potassium 4.5 mmol/L (3.5-5.1); Sodium Level 136 mmol/L (136-145); Triglycerides 69 mg/dL; Very Low Density Lipoprotein 14 mg/dL (5-40)
== END | disposition home or self-care (01) ==
LOC: MTLAB 10:22
PROVIDERS: PCP Family Medicine; Referring Provider Family Medicine; Visit Provider Family Medicine
DX: E11.9 Type 2 diabetes mellitus without complications (principal)
CPT/HCPCS: 36415; 80053; 80061; 82570

== ENCOUNTER → 2025-04-30 | Outpatient (CLI) | payer MEDICARE, SELFPAY ==
[2025-04-30 12:14] LABS: PSA,Total- Diagnostic 2.25 ng/mL (0.00-4.00)
--- OUTSIDE RECORDS SUMMARY | 2025-04-30 20:21 | XMS RPT_ITS | CCD ---
Author Organization [facility] Care Team Providers Care Registered Nurse Nursery Name Role Phone Dr. Scar Hdz Primary Care Provider Cebulisa, Dr. Lizandro Gracia Attending Provider Dejuan, Dr. Lizandro Gracia Referring Provider Andreina, Dr. Abbott Referring Provider Andreina, Dr. Abbott Primary Care Provider Andreina, Dr. Abbott Referring Provider SAAD Mcclendon Attending Provider Andreina, Dr. Abbott Primary Care Provider Andreina, Dr. Abbott Referring Provider SAAD Mcclendon Attending Provider Andreina, Dr. Abbott Primary Care Provider Andreina, Dr. Abbott Referring Provider SAAD Mcclendon Attending Provider Dr. Lizandro Zaidi Attending Provider Andreina, Dr. Abbott Primary Care Provider Dejuan, Dr. Lizandro Gracia Referring Provider Andreina, Dr. Abbott Referring Provider Andreina, Dr. Abbott Primary Care Provider Andreina, Dr. Abbott Referring Provider SAAD Mcclendon Attending Provider Dejuan, Dr. Lizandro Gracia Attending Provider Cebul, Dr. Lizandro Gracia Referring Provider Alonso, Dr. Sharee Attending Provider Scar Hdz Attending Unavailable Hdz, Scar Referring Unavailable Hdz, Scar Primary Care Unavailable Hdz, Scar Attending Unavailable Hdz, Scar Primary Care Unavailable Hdz, Scar Attending Unavailable Hdz, Scar Primary Care Unavailable Hdz, Scar Primary Care Unavailable Francheska Trevizo Attending UnavailFrancheska Travis Referring Unavailabl e Sharee Gupta Attending Unavailable Hdz, Scar Primary Care Unavailable Cebul, Lizandro Gracia Attending Unavailable CebulLizandro Referring Unavailable Hdz, Scar Primary Care Unavailable Hdz, Scar Primary Care Unavailable Francheska Trevizo Attending Unavailabl e Hdz, Scar Referring Unavailable Hdz, Scar Primary Care Unavailable HarishCirilo Attending Unavailable Harish, Cirilo Aguilar Referring Unavailable Cebul, Lizandro Gracia Attending Unavailable CebulLizandro Referring Unavailable Hdz, Scar Primary Care Unavailable Dr. Scar Hdz MD Primary Care Provider [phone] Dr. Scar Hdz MD Referring Provider Dr. Everton Montelongo MD Attending Provider Medications Current Medications Medication Drug Class(es) Dates Sig (Normalized) Sig (Original) alpha liponic acid (1 source) Start: 04-30-2025 alpha liponic acid Active PO DAILY April 30, 2025 12:00am aspirin 81 mg delayed release oral tablet (18 sources) Platelet Aggregation Inhibitor, Nonsteroidal Anti-inflammatory Drug Start: 04-05-2020 Aspirin (Adult Low Dose Aspirin) 81 mg tablet,delayed release (DR/EC) Active 81 mg PO DAILY April 05, 2020 12:00am Start: 08-27-2013 End: 04-05-2020 take 1 tablet by mouth once daily Aspirin 325 MG tablet Discontinued 325 mg PO DAILY@0800 August 27, 2013 12:00am April 05, 2020 8:45am atorvastatin 10 mg oral tablet (20 sources) HMG-CoA Reductase Inhibitor Start: 07-03-2022 Atorvastatin Active 20 MG .ROUTE DAILY July 03, 2022 3:06pm 20 mg daily; Start: 05-31-2021 End: 07-03-2022 Atorvastatin 10 mg tablet Ac tive 20 mg .ROUTE DAILY July 03, 2022 3:06pm 20 mg daily; Start: 08-27-2013 End: 07-03-2022 Atorvastatin 10 mg tablet Di scontinued 0 .ROUTE .COMPLEX 90 May 31, 2021 8:27am July 03, 2022 3:06pm TAKE 1 TABLET AT BEDTIME carvedilol 6.25 mg oral tablet (20 sources) alpha-Adrenergic Ru, beta-Adrenergic Ru Start: 04-02-2018 End: 03-04-2025 take 1 tablet by mouth twice daily Carvedilol (Coreg) 6.25 mg tablet Active 6.25 mg PO TWICE A DAY 180 March 04, 2025 8:01am Start: 08-29-2013 End: 04-02-2018 take 1 tablet by mouth twice daily Carvedilol 12.5 MG tablet Discontinued 12.5 mg PO TWICE A DAY 60 August 29, 2013 12:00am April 02, 2018 12:01pm Start: 08-27-2013 End: 08-29-2013 take 1 tablet by mouth twice daily Carvedilol 3.125 MG tablet Discontinued 3.125 mg PO TWICE A DAY August 27, 2013 12:00am August 29, 2013 4:02pm dapagliflozin 10 mg oral tablet (17 sources) Sodium-Glucose Cotransporter 2 Inhibitor Start: 12-25-2021 End: 07-03-2022 take 1 tablet by mouth once daily Dapagliflozin Propanediol (Farxiga) 10 mg tablet Active 10 mg PO DAILY July 03, 2022 12:00am docusate sodium 100 mg oral capsule (18 sources) Start: 04-05-2020 take 1 capsule by mouth twice daily as needed for constipation Docusate Sodium (Colace) 100 mg capsule Active 100 mg PO TWICE A DAY as needed for Constipation April 05, 2020 12:00am Start: 08-27-2013 End: 04-09-2019 take 1 capsule by mouth once daily Docusate Sodium 100 MG capsule Discontinued 100 mg PO DAILY August 27, 2013 12:00am April 09, 2019 3:18pm 0.5 ml dulaglutide 1.5 mg/ml auto-injector (3 sources) GLP-1 Receptor Agonist Start: 05-16-2023 Dulaglutide (Trulicity) 0.75 mg/0.5 mL pen injector Active 0.75 mg SC EVERY WEEK Valeria 28th, 2023 12:00am finasteride 5 mg oral tablet (9 sources) 5-alpha Reductase Inhibitor Start: 03-27-2018 take 1 tablet by mouth once daily Finasteride 5 mg tablet Active 5 mg PO daily March 27, 2018 12:00am glimepiride 2 mg oral tablet (17 sources) Sulfonylurea Start: 07-03-2022 take 4 mg by mouth twice daily Glimepiride Active 4 MG PO TWICE A DAY July 03, 2022 3:05pm Start: 03-27-2018 End: 07-03-2022 take 2 tablets by mouth twice daily Glimepiride 2 mg tablet Active 4 mg PO TWICE A DAY July 03, 2022 3:05pm lisinopril 5 mg oral tablet (20 sources) Angiotensin Converting Enzyme Inhibitor Start: 07-03-2022 End: 12-05-2024 take 1 tablet by mouth once daily Lisinopril 5 mg tablet Active 5 mg PO DAILY December 05, 2024 5:47pm Start: 07-07-2021 End: 07-03-2022 take 2 tablets by mouth once daily Lisinopril 5 mg tablet Discontinued 10 mg PO DAILY July 07, 2021 9:00am July 03, 2022 3:24pm Start: 07-07-2021 End: 07-03-2022 take 10 mg by mouth once daily Lisinopril Discontinued 10 MG PO DAILY July 07, 2021 9:00am July 03, 2022 3:24pm Start: 12-30-2020 End: 07-07-2021 take 1 tablet by mouth once daily Lisinopril 5 mg tablet Discontinued 5 mg PO DAILY December 30, 2020 12:16pm July 07, 2021 9:01am Start: 04-05-2020 End: 12-30-2020 take 2 tablets by mouth once daily Lisinopril 5 mg tablet Discontinued 10 mg PO DAILY April 05, 2020 8:44am December 30, 2020 12:19pm Start: 04-05-2020 End: 12-30-2020 take 10 mg by mouth once daily Lisinopril Discontinued 10 MG PO DAILY April 05, 2020 8:44am December 30, 2020 12:19pm Start: 04-09-2019 End: 04-09-2019 take 2 tablets by mouth once daily Lisinopril 2.5 mg tablet Discontinued 5 mg PO DAILY April 09, 2019 3:54pm April 09, 2019 4:42pm Start: 04-09-2019 End: 04-09-2019 take 5 mg by mouth once daily Lisinopril Discontinued 5 MG PO DAILY April 09, 2019 3:54pm April 09, 2019 4:42pm Start: 04-09-2019 End: 04-05-2020 take 1 tablet by mouth once daily Lisinopril 5 mg tablet Discontinued 5 mg PO DAILY April 09, 2019 12:00am April 05, 2020 8:46am Start: 08-27-2013 End: 04-09-2019 take 1 tablet by mouth once daily Lisinopril 2.5 mg tablet Discontinued 2.5 mg PO DAILY April 02, 2018 12:12pm April 09, 2019 3:18pm 24 hr metFORMIN hydrochloride 500 mg extended release oral tablet (9 sources) Biguanide Start: 08-27-2013 take 2 tablets by mouth twice daily Metformin 500 MG tablet Active 1000 mg PO TWICE A DAY August 27, 2013 12:00am Start: 08-27-2013 take 1000 mg by mout h twice daily Metformin Active 1000 MG PO TWICE A DAY August 27, 2013 12:00am predniSONE 1 mg oral tablet (19 sources) Start: 07-07-2021 End: 04-30-2025 take 2 tablets by mouth once daily as needed Prednisone 1 mg tablet Active 2 mg PO DAILY as needed April 30, 2025 9:54am Start: 07-07-2021 take 2 mg by mouth once daily Prednisone Active 2 MG PO DAILY July 07, 2021 12:00am Start: 12-30-2020 End: 01-19-2021 take 1 tablet by mouth once daily Prednisone 5 mg tablet Discontinued 5 mg PO DAILY December 30, 2020 1:00am January 19, 2021 3:02pm sulfaSALAzine 500 mg delayed release oral tablet (1 source) Aminosalicylate Start: 04-30-2025 take 1 tablet by mouth once daily Sulfasalazine 500 mg tablet,delayed release (DR/EC) Active 500 mg PO daily April 30, 2025 12:00am tamsulosin hydrochloride 0.4 mg oral capsule (9 sources) alpha-Adrenergic Ru Start: 05-03-2017 take 1 capsule by mouth once daily Tamsulosin 0.4 MG capsule Active 0.4 mg PO DAILY May 03, 2017 12:00am ubidecarenone 75 mg oral capsule (9 sources) Start: 01-19-2021 Coenzyme Q10 (Ultra Coq10) 75 mg capsule Active 200 mg PO TWICE A DAY January 19, 2021 1:00am Vitamins A,C,M-Nrrp-Oxagac (Preservision Areds) [id number] Capsule (9 sources) Start: 12-25-2021 Vitamins A,C,N-Cbkw-Zirtav (Preservision Areds) [id number] [id number] Capsule Active 1 NMA PO TWICE A DAY December 25, 2021 1:00am Start: 12-25-2021 take 1 capsule by [facility] twice daily Vitamins A,C,G-Uuyt-Csbvap (Preservision Areds) [id number] ibrn-dl-lboq Capsule Active 1 CAP PO TWICE A DAY December 25, 2021 12:00am Start: 12-25-2021 take 1 capsule by [facility] twice daily Vitamins A,C,P-Ldpm-Vrhiln (Preservision Areds) [id number] aiij-cy-fovi Capsule Active 1 CAP PO TWICE A DAY December 25, 2021 1:00am Zinc (9 sources) Start: 12-25-2021 take 2 tablets by [facility] once daily Zinc 100 mg Tablet Active 200 mg PO DAILY December 25, 2021 1:00am Start: 12-25-2021 take 200 mg by mouth once harsh y Zinc Active 200 MG PO DAILY December 25, 2021 12:00am Start: 12-25-2021 take 200 mg by mouth once harsh y Zinc Active 200 MG PO DAILY December 25, 2021 1:00am Completed/Discontinued Medications Medication Drug Class(es) Dates Sig (Normalized) Sig (Original) acetaminophen 325 mg / HYDROcodone bitartrate 5 mg oral tablet (9 sources) Opioid Agonist Start: 12-25-2021 End: 04-20-2022 Hydrocodone-Acetami nophen 5-325 mg tablet Discontinued 1 {tbl} PO EVERY 6 HOURS as needed for pain 10 3 December 25, 2021 April 20, 2022 9:50am Start: 12-25-2021 End: 04-20-2022 take 1 tablet by mouth every six hours Hydrocodone-Acetaminophen Discontinued 1 TABLET PO EVERY 6 HOURS 10 3 December 25, 2021 April 20, 2022 9:50am alendronic acid 70 mg oral tablet (3 sources) Bisphosphonate Start: 05-16-2023 End: 04-30-2025 take 1 tablet by mouth every week Alendronate 70 mg tablet Discontinued 70 mg PO EVERY WEEK May 16, 2023 12:00am April 30, 2025 9:53am amoxicillin 875 mg / clavulanate 125 mg oral tablet (9 sources) Penicillin-class Antibacterial Start: 12-25-2021 End: 04-20-2022 Amoxicillin-Pot Clavulanate 875-125 mg tablet Discontinued 1 {tbl} PO TWICE A DAY December 25, 2021 1:00am April 20, 2022 9:50am Start: 12-25-2021 End: 04-20-2022 take 1 tablet by mouth twice daily Amoxicillin-Pot Clavulanate Discontinued 1 TABLET PO TWICE A DAY December 25, 2021 1:00am April 20, 2022 9:50am empagliflozin 25 mg oral tablet (18 sources) Sodium-Glucose Cotransporter 2 Inhibitor Start: 04-09-2019 End: 04-05-2020 take 1 tablet by mouth once daily Empagliflozin (Jardiance) 25 mg tablet Discontinued 25 mg PO DAILY April 09, 2019 12:00am April 05, 2020 8:46am Start: 03-27-2018 End: 04-09-2019 take 1 tablet by mouth once daily Empagliflozin 10 mg tablet Discontinued 10 mg PO daily March 27, 2018 12:00am April 09, 2019 3:18pm folic acid 1 mg oral tablet (9 sources) Start: 01-19-2021 End: 07-07-2021 take 1 tablet by mouth once daily Folic Acid 1 mg tablet Discontinued 1 mg PO DAILY January 19, 2021 1:00am July 07, 2021 9:01am hydroxychloroquine sulfate 200 mg oral tablet (8 sources) Antimalarial, Antirheumatic Agent Start: 07-03-2022 End: 04-30-2025 Hydroxychloroquine 200 mg tablet Discontinued 200 mg PO DAILY July 03, 2022 12:00am April 30, 2025 9:53am 200 mg on odd days 400 on other days methotrexate 2.5 mg oral tablet (9 sources) Folate Analog Metabolic Inhibitor Start: 12-30-2020 End: 07-07-2021 Methotrexate Sodium 2.5 mg tablet Discontinued 15 mg PO EVERY WEEK December 30, 2020 1:00am July 07, 2021 8:59am Start: 12-30-2020 End: 07-07-2021 take 15 mg by mouth every week Methotrexate Sodium Dis continued 15 MG PO EVERY WEEK December 30, 2020 1:00am July 07, 2021 8:59am Conroy-3 Fatty Acids (Fish Oil Concentrate) 1,000 mg capsule (9 sources) Start: 12-30-2020 End: 07-07-2021 take 1 capsule by mouth twice daily Conroy-3 Fatty Acids (Fish Oil Concentrate) 1,000 mg capsule Discontinued 1000 mg PO TWICE A DAY December 30, 2020 1:00am July 07, 2021 9:00am Start: 12-30-2020 End: 07-07-2021 take 1 capsule by mouth twice daily Conroy-3 Fatty Acids (Fish Oil Concentrate) 1,000 mg capsule Discontinued 1000 MG PO TWICE A DAY December 30, 2020 12:00am July 07, 2021 8:00am Start: 12-30-2020 End: 07-07-2021 take 1 capsule by mouth twice daily Conroy-3 Fatty Acids (Fish Oil Concentrate) 1,000 mg capsule Discontinued 1000 MG PO TWICE A DAY December 30, 2020 1:00am July 07, 2021 9:00am red yeast rice 600 mg oral tablet (9 sources) Start: 12-30-2020 End: 07-07-2021 take 1 tablet by mouth once daily Red Yeast Rice 600 mg tablet Discontinued 1200 mg PO DAILY December 30, 2020 1:00am July 07, 2021 9:00am give with meal/snack Turmeric extract (9 sources) Start: 12-30-2020 End: 07-07-2021 take 1 capsule by mouth once daily Turmeric 400 mg capsule Discontinued 800 mg PO DAILY December 30, 2020 1:00am July 07, 2021 9:00am Start: 12-30-2020 End: 07-07-2021 take 800 mg by mouth once daily Turmeric Discontinued 800 MG PO DAILY December 30, 2020 12:00am July 07, 2021 8:00am Start: 12-30-2020 End: 07-07-2021 take 800 mg by mouth once daily Turmeric Discontinued 800 MG PO DAILY December 30, 2020 1:00am July 07, 2021 9:00am Problems Active Problems Problem Classification Problem Date Documented Date Episodic/Chronic Cardiac dysrhythmias (20 sources) Supraventricular tachycardia; Translations: [Supraventricular tachycardia] Chronic Coronary atherosclerosis and other heart disease (20 sources) Coronary atherosclerosis; Translations: [Atherosclerotic heart disease of [place] coronary artery without angina pectoris] Onset: 03-15-2024 Chronic Comment on above: CABG X 2, ERICKSON to LA Dm SVG to OM branch of CFX 07/04/13 Diabetes mellitus without complication (19 sources) Diabetes mellitus; Translations: [Type 2 diabetes mellitus without complications] Onset: 12-16-2024 04-04-2019 Chronic Disorders of lipid metabolism (20 sources) Pure hypercholesterolemia; Translations: [Pure hypercholesterolemia, unspecified] Chronic Essential hypertension (20 sources) Essential hypertension; Translations: [Essential (primary) hypertension] Chronic Genitourinary symptoms and ill-defined conditions (1 source) Unspecified symptoms and signs involving the genitourinary system; Translations: [Unspecified symptoms and signs involving the genitourinary system] Onset: 10-28-2024 Episodic Occlusion or stenosis of precerebral arteries (16 sources) Bilateral stenosis of carotid arteries; Translations: [Occlusion and stenosis of bilateral carotid arteries] Onset: 02-23-2024 Chronic Other aftercare (9 sources) Long-term current use of drug therapy; Translations: [Other fci (current) drug therapy] 01-19-2021 Episodic Other circulatory disease (9 sources) Peripheral arterial occlusive disease; Translations: [Disorder of arteries and arterioles, unspecified] 01-19-2021 Chronic Other circulatory disease (1 source) Disorder of arteries and arterioles, unspecified; Translations: [Arterial embolism and thrombosis of lower extremity] Chronic Other screening for suspected conditions (not mental disorders or infectious disease) (11 sources) Patient encounter status; Translations: [Encounter for screening for cardiovascular disorders] Onset: 05-16-2024 Episodic Peripheral and visceral atherosclerosis (15 sources) Disorder of aorta; Translations: [Atherosclerosis of aorta] Onset: 03-20-2024 Chronic Residual codes; unclassified (9 sources) Obstructive sleep apnea syndrome; Translations: [Obstructive sleep apnea (adult) (pediatric)] 04-02-2018 Chronic Residual codes; unclassified (9 sources) History of colonoscopy; Translations: [Other specified postprocedural states] 01-19-2021 Episodic Comment on above: 2019 Skull and face fractures (9 sources) Fracture of maxilla; Translations: [Maxillary fracture, unspecified side, initial encounter for closed fracture] 01-02-2022 Episodic Past or Other Problems Problem Classification Problem Date Documented Da te Episodic/Chronic Coronary atherosclerosis and other heart disease (6 sources) Presence of aortocoronary bypass graft; Translations: [Aortocoronary bypass status] Onset: 06-19-2013 Episodic Results Test Name Value Interpretation Reference Range Facility Comprehensive Metabolic Prof [facility] 11-24-2024 Albumin [Mass/Vol] 3.7 g/dL Normal 3.2-5.0 [facility] Comment on above: Performed By: #### L 500.4100, L501.1200, [id number] #### [facility] [address] [place], [address] Albumin/Globulin [Mass ratio] 1.1 {ratio} Normal 0.9-2.4 [facility] Comment on above: Performed By: #### L 500.4100, L501.1200, [id number] #### [facility] [address] [place], [address] ALK P 46 U/L Normal 45-117 [facility] Comment on above: Performed By: #### L 500.4100, [id number], [id number] #### [facility] [address] [place], [address] ALT [Catalytic activity/Vol] 16 U/L Normal 16-61 [facility] Comment on above: Performed By: #### L 500.4100, L501.1200, [id number] #### [facility] [address] [place], [address] AST [Catalytic activity/Vol] 15 U/L Normal 15-37 [facility] Comment on above: Performed By: #### L 500.4100, L501.1200, [id number] #### [facility] [address] [place], [address] Bilirubin [Mass/Vol] 0.50 mg/dL Normal 0.20-1.00 [facility] Comment on above: Result Comment: For patients on eltrombopag therapy, use of Dimension Shiro TBIL is not recommended. Performed By: #### L 500.4100, L501.1200, [id number] #### [facility] [address] [place], [address] BUN/CRE 20.2 RATIO High 10-20 [facility] Comment on above: Performed By: #### L 500.4100, L501.1200, [id number] #### [facility] [address] [place], [address] CA,Total 8.9 mg/dL Normal 8.5-10.1 [facility] Comment on above: Performed By: #### L 500.4100, [id number], [id number] #### [facility] [address] [place], [address] Chloride [Moles/Vol] 106 mmol/L Normal 98-107 [facility] Comment on above: Performed By: #### L 500.4100, [id number], [id number] #### [facility] [address] [place], [address] CO2 [Moles/Vol] 27.0 mmol/L Normal 21.0-32.0 [facility] Comment on above: Performed By: #### L 500.4100, [id number], [id number] #### [facility] [address] [place], [address] Creatinine [Mass/Vol] 1.14 mg/dL Normal 0.70-1.30 [facility] Comment on above: Result Comment: The validity of the calculated GFR GFRAA in patients over 70 years has not been determined. Clinical correlation is essential. Performed By: #### L 500.4100, L501.1200, [id number] #### [facility] [address] [place], [address] EST GFR - AA 80 mL/min Normal >60 [facility] Comment on above: Result Comment: Afri can Nigerien GFR Calc Performed By: #### L 500.4100, L501.1200, [id number] #### [facility] [address] [place], [address] GAP 3 Low 5-15 [facility] Comment on above: Performed By: #### L 500.4100, [id number], [id number] #### [facility] [address] [place], [address] GFR/1.73 sq M.predicted among non-blacks MDRD (S/P/Bld) [Vol rate/Area] 66 mL/min/{1.73_m2} Normal >60 [facility] Comment on above: Result Comment: Non- GFR Calc Performed By: #### L 500.4100, L501.1200, [id number] #### [facility] [address] [place], [address] Globulin (S) [Mass/Vol] 3.3 g/dL Normal 2.2-4.2 [facility] Comment on above: Performed By: #### L 500.4100, L501.1200, [id number] #### [facility] [address] [place], [address] Glucose [Mass/Vol] 93 mg/dL Normal 74-106 [facility] Comment on above: Performed By: #### L 500.4100, L501.1200, [id number] #### [facility] [address] [place], [address] Potassium [Moles/Vol] 4.5 mmol/L Normal 3.5-5.1 [facility] Comment on above: Performed By: #### L 500.4100, L501.1200, [id number] #### [facility] [address] [place], [address] Sodium [Moles/Vol] 136 mmol/L Normal 136-145 [facility] Comment on above: Performed By: #### L 500.4100, [id number], [id number] #### [facility] [address] [place], [address] T PROT 7.0 g/dL Normal 6.4-8.2 [facility] Comment on above: Performed By: #### L 500.4100, [id number], [id number] #### [facility] [address] [place], [address] Urea nitrogen [Mass/Vol] 23 mg/dL High 7-18 [facility] Comment on above: Performed By: #### L 500.4100, [id number], [id number] #### [facility] [address] [place], [address] Creatinine, Urine (random)on 11-24-2024 UR CREAT 113.00 mg/dL Normal NO RANGE EST. [facility] Comment on above: Performed By: #### L 500.4100, L501.1200, [id number] #### [facility] [address] [place], [address] Lipid Profileon 11-24-2024 Cholesterol [Mass/Vol] 128 mg/dL Normal 200 [facility] Comment on above: Result Comment: <200 mg/dL Desirable 200-240 mg/dL Borderline >240 mg/dL High Risk Performed By: #### L 500.4100, [id number], [id number] ####[facility] [address] [place], [address] Cholesterol in HDL [Mass/Vol] 43 mg/dL Normal [facility] Comment on above: Result Comment: The drugs N-Acetylcysteine and Metamizole may falsely depress this assay. Reference Range HDL <40 mg/dL Low HDL Cholesterol HDL >or= 60 mg/dL High HDL Cholesterol Performed By: #### L 500.4100, L501.1200, [id number] ####[facility] [address] [place], [address] Cholesterol in LDL [Mass/Vol] 71 mg/dL Normal 0-130 [facility] Comment on above: Performed By: #### L 500.4100, [id number], [id number] ####[facility] [address] [place], [address] Cholesterol in VLDL [Mass/Vol] 14 mg/dL Normal 5-40 [facility] Comment on above: Performed By: #### L 500.4100, L501.1200, [id number] ####[facility] [address] [place], [address] Triglyceride [Mass/Vol] 69 mg/dL Normal [facility] Comment on above: Result Comment: The drugs N-Acetylcysteine and Metamizole may falsely depress this assay. Serum Triglycerides Reference Interval Normal <150 mg/dL Borderline high 150 - 199 mg/dL High 200 - 499 mg/dL Very High > or = 500 mg/dL Performed By: #### L 500.4100, L501.1200, [id number] ####[facility] [address] [place], [address] Urine Cultureon 10-03-2024 [facility] [place] Count >100,000 Enterococcus faecalis Enterococcus faecalis Providencia rettgeri: REACTION Ampicillin Islt RADHA R Ampicillin+Sulbac Islt RADHA 8 ceFAZolin Islt RADHA >=64 R Cefepime Islt RADHA <=0.12 S cefTRIAXone Islt RADHA <=0.25 S Ciprofloxacin Islt RADHA <=0.25 S Gentamicin Islt RADHA <=1 S Imipenem Islt RADHA 1 S levoFLOXacin Islt RADHA <=0.12 S Nitrofurantoin Islt RADHA 256 R Pip+Tazo Islt RADHA <=4 S Tobramycin Islt RADHA <=1 S TMP SMX Islt RADHA <=20 S Enterococcus faecalis: REACTION Ampicillin Islt RADHA <=2 S Ciprofloxacin Islt RADHA <=0.5 Gentamicin Synergy Susc Islt SYN-S S levoFLOXacin Islt RADHA 1 S Linezolid Islt RADHA 1 S Nitrofurantoin Islt RADHA <=16 S Streptomycin High Pot Susc Islt SYN-S S Tetracycline Islt RADHA >=16 R Vancomycin Islt RADHA 2 S Normal [facility] Comment on above: Performed By: #### L 400.2010, #### [facility] [address] [place], [address] Urinalysis, Routine (Dipstic k)on 09-29-2024 BILIRUBIN URINE Negative Normal Negative [facility] Comment on above: Order Comment: CLEAN CATCH Performed By: #### L 400.2010, #### [facility] [address] [place], [address] Clarity (U) Cloudy Normal Clear [facility] Comment on above: Order Comment: CLEAN CATCH Performed By: #### L 400.2010, #### [facility] [address] [place], [address] Color (U) Yellow Normal Yellow [facility] Comment on above: Order Comment: CLEAN CATCH Performed By: #### L 400.2010, #### [facility] [address] [place], [address] GLUCOSE, UR 1000 mg/dl Abnormal Normal [facility] Comment on above: Order Comment: CLEAN CATCH Performed By: #### L 400.2010, #### [facility] [address] [place], [address] KETONE UR 5 mg/dl Abnormal Negative [facility] Comment on above: Order Comment: CLEAN CATCH Performed By: #### L 400.2010, #### [facility] [address] [place], [address] LEUK ESTERASE 500 /ul Abnormal Negative [facility] Comment on above: Order Comment: CLEAN CATCH Performed By: #### L 400.2010, #### [facility] [address] [place], [address] Nitrite Ql (U) Positive Abnormal Negative [facility] Comment on above: Order Comment: CLEAN CATCH Performed By: #### L 400.2010, #### [facility] [address] [place], [address] OCCULT BLOOD-UR 25 /ul Abnormal Negative [facility] Comment on above: Order Comment: CLEAN CATCH Performed By: #### L 400.2010, #### [facility] [address] [place], [address] pH UR 8.0 Normal 5.0 - 8.0 [facility] Comment on above: Order Comment: CLEAN CATCH Performed By: #### L 400.2010, #### [facility] [address] [place], [address] PROT DIPSTX 30 mg/dl Abnormal Negative [facility] Comment on above: Order Comment: CLEAN CATCH Performed By: #### L 400.2010, #### [facility] [address] [place], [address] SP.GR. DIPSTX 1.010 Normal 1.002-1.030 [facility] Comment on above: Order Comment: CLEAN CATCH Performed By: #### L 400.2010, #### [facility] [address] [place], [address] UROBILI Normal Normal Normal [facility] Comment on above: Order Comment: CLEAN CATCH Performed By: #### L 400.2010, M100.2200 #### [facility] [address] [place], [address] Comprehensive Metabolic Prof ilon 06-10-2024 Albumin [Mass/Vol] 3.8 g/dL Normal 3.2-5.0 [facility] Comment on above: Performed By: #### L 500.4050, L500.4100 #### [facility] [address] [place], [address] Albumin/Globulin [Mass ratio] 1.1 {ratio} Normal 0.9-2.4 [facility] Comment on above: Performed By: #### L 500.4050, L500.4100 #### [facility] [address] [place], [address] ALK P 44 U/L Low 45-117 [facility] Comment on above: Performed By: #### L 500.4050, L500.4100 #### [facility] [address] [place], [address] ALT [Catalytic activity/Vol] 24 U/L Normal 16-61 [facility] Comment on above: Performed By: #### L 500.4050, L500.4100 #### [facility] [address] [place], [address] AST [Catalytic activity/Vol] 18 U/L Normal 15-37 [facility] Comment on above: Performed By: #### L 500.4050, L500.4100 #### [facility] [address] [place], [address] Bilirubin [Mass/Vol] 0.50 mg/dL Normal 0.20-1.00 [facility] Comment on above: Result Comment: For patients on eltrombopag therapy, use of Dimension Shiro TBIL is not recommended. Performed By: #### L 500.4050, L500.4100 #### [facility] [address] [place], [address] BUN/CRE 16.4 RATIO Normal 10-20 [facility] Comment on above: Performed By: #### L 500.4050, L500.4100 #### [facility] [address] [place], [address] CA,Total 9.0 mg/dL Normal 8.5-10.1 [facility] Comment on above: Performed By: #### L 500.4050, L500.4100 #### [facility] [address] [place], [address] Chloride [Moles/Vol] 105 mmol/L Normal 98-107 [facility] Comment on above: Performed By: #### L 500.4050, L500.4100 #### [facility] [address] [place], [address] CO2 [Moles/Vol] 26.0 mmol/L Normal 21.0-32.0 [facility] Comment on above: Performed By: #### L 500.4050, L500.4100 #### [facility] [address] [place], [address] Creatinine [Mass/Vol] 1.16 mg/dL Normal 0.70-1.30 [facility] Comment on above: Result Comment: The validity of the calculated GFR GFRAA in patients over 70 years has not been determined. Clinical correlation is essential. Performed By: #### L 500.4050, L500.4100 #### [facility] [address] [place], [address] EST GFR - AA 79 mL/min Normal >60 [facility] Comment on above: Result Comment: Afri can Nigerien GFR Calc Performed By: #### L 500.4050, L500.4100 #### [facility] [address] [place], [address] GAP 6 Normal 5-15 [facility] Comment on above: Performed By: #### L 500.4050, L500.4100 #### [facility] [address] [place], [address] GFR/1.73 sq M.predicted among non-blacks MDRD (S/P/Bld) [Vol rate/Area] 65 mL/min/{1.73_m2} Normal >60 [facility] Comment on above: Result Comment: Non- GFR Calc Performed By: #### L 500.4050, L500.4100 #### [facility] [address] [place], [address] Globulin (S) [Mass/Vol] 3.5 g/dL Normal 2.2-4.2 [facility] Comment on above: Performed By: #### L 500.4050, L500.4100 #### [facility] [address] [place], [address] Glucose [Mass/Vol] 111 mg/dL High 74-106 [facility] Comment on above: Result Comment: Fast ing Glucose result from 100 to 125 mg/dL suggests IMPAIRED HOMEOSTASIS per A.D.A. criteria. Performed By: #### L 500.4050, L500.4100 #### [facility] [address] [place], [address] Potassium [Moles/Vol] 4.5 mmol/L Normal 3.5-5.1 [facility] Comment on above: Performed By: #### L 500.4050, L500.4100 #### [facility] [address] [place], [address] Sodium [Moles/Vol] 137 mmol/L Normal 136-145 [facility] Comment on above: Performed By: #### L 500.4050, L500.4100 #### [facility] [address] [place], [address] T PROT 7.3 g/dL Normal 6.4-8.2 [facility] Comment on above: Performed By: #### L 500.4050, L500.4100 #### [facility] [address] [place], [address] Urea nitrogen [Mass/Vol] 19 mg/dL High 7-18 [facility] Comment on above: Performed By: #### L 500.4050, L500.4100 #### [facility] [address] [place], [address] Lipid Profileon 06-10-2024 Cholesterol [Mass/Vol] 142 mg/dL Normal 200 [facility] Comment on above: Result Comment: <200 mg/dL Desirable 200-240 mg/dL Borderline >240 mg/dL High Risk Performed By: #### L 500.4050, L500.4100 #### [facility] [address] [place], [address] Cholesterol in HDL [Mass/Vol] 47 mg/dL Normal [facility] Comment on above: Result Comment: The drugs N-Acetylcysteine and Metamizole may falsely depress this assay. Reference Range HDL <40 mg/dL Low HDL Cholesterol HDL >or= 60 mg/dL High HDL Cholesterol Performed By: #### L 500.4050, L500.4100 #### [facility] [address] [place], [address] Cholesterol in LDL [Mass/Vol] 78 mg/dL Normal 0-130 [facility] Comment on above: Performed By: #### L 500.4050, L500.4100 #### [facility] [address] [place], [address] Cholesterol in VLDL [Mass/Vol] 17 mg/dL Normal 5-40 [facility] Comment on above: Performed By: #### L 500.4050, L500.4100 #### [facility] [address] [place], [address] Triglyceride [Mass/Vol] 87 mg/dL Normal [facility] Comment on above: Result Comment: The drugs N-Acetylcysteine and Metamizole may falsely depress this assay. Serum Triglycerides Reference Interval Normal <150 mg/dL Borderline high 150 - 199 mg/dL High 200 - 499 mg/dL Very High > or = 500 mg/dL Performed By: #### L 500.4050, L500.4100 #### [facility] [address] [place], [address] PSA,Total- Diagnosticon 04-19 PSA, DIAGNOSTIC 2.54 ng/mL Normal 0.0-4.0 [facility] Comment on above: Result Comment: This test was performed using the TPSA assay method for the My[employer] chemistry system. Values obtained with different assay methods cannot be used interchangably. When changing PSA assays in the course of monitoring a patient, additional sequential testing should be carried out to confirm baseline values. Performed By: #### L 501.9940 #### [facility] [address] [place], [address] Echo Completeon 03-06-2024 Echo Complete [facility] [address] [place] [address] Echo Complete 03/06/24 1406 MR#: [id number] Acct: [id number] Name: CHICHI GERARD Rep #: [id number] : 1950 74 From: Sharee Gupta MD Attending Dr: SAAD Bishop Status: REG CLI Ordering Dr: Francheska Trevizo Date: 02/17 07/12 Location: [facility] Sex: M C Admitted: Reason For Study: ASHD Procedure This was a 2D Doppler, Color Flow transthoracic echocardiogram. Exam performed in department. Left Ventricle Normal size and thickness. The left ventricular ejection fraction is 65 %. Normal diastology for age. Right Ventricle Normal right ventricle. Atria The left atrium is moderately enlarged. Normal right atrium. Mitral Valve Mild focal mitral valve calcification. Tricuspid Valve Trivial tricuspid valve insufficiency. Normal pulmonary artery pressure. Aortic Valve Mild diffuse aortic valve calcification. Mild aortic stenosis. Pulmonic Valve The pulmonic valve is not well visualized. Great Vessels Normal sized aortic root. Pericardium/Pleural No pericardial effusion. MMode/2D Measurements Calculations LVIDd: 4.4 cm IVSd: 0.87 cm LVOT diam: 2.0 cm LVIDs: 2.8 cm LVPWd: 0.96 cm LVOT area: 3.2 cm2 RVDd: 3.3 cm FS: 35.3 % Ao root diam: 3.3 cm LAV(MOD-bp): 56.4 ml LVAd ap4: 20.3 cm2 LAV(MOD-bp) Indexed: 28.3 ml/m2 LVLd ap4: 6.7 cm LAV(MOD-sp2): 57.3 ml EDV(MOD-sp4): 52.5 ml LAV(MOD-sp4): 53.4 ml EDV(sp4-el): 51.8 ml LVAs ap4: 10.6 cm2 LVLs ap4: 5.4 cm ESV(MOD-sp4): 19.0 ml ESV(sp4-el): 17.6 ml EF(MOD-sp4): 63.9 % EF(sp4-el): 66.0 % LVAd ap2: 17.5 cm2 SV(MOD-sp4): 33.6 ml SV(MOD-sp2): 24.4 ml LVLd ap2: 7.1 cm EDV(MOD-sp2): 36.6 ml EDV(sp2-el): 36.8 ml LVAs ap2: 9.1 cm2 LVLs ap2: 6.2 cm ESV(MOD-sp2): 12.2 ml ESV(sp2-el): 11.5 ml EF(MOD-sp2): 66.6 % SV(sp4-el): 34.2 ml LA dimension(2D): 4.5 cm LA A4 area: 18.7 cm2 RA A4 area: 15.8 cm2 TAPSE: 1.7 cm Time Measurements MV dec time: 0.27 sec Doppler Measurements Calculations MV E max cruz: 71.2 cm/sec Lat Peak E' Cruz: 8.2 cm/sec Med Peak E' Cruz: 8.2 cm/sec MV A max cruz: 76.6 cm/sec E/E' lat: 8.7 E/E' med: 8.7 MV E/A: 0.93 MV V2 max: 88.4 cm/sec MV P1/2t max cruz: 81.2 cm/sec Ao V2 max: 222.9 cm/sec MV max P.1 mmHg MV P1/2t: 87.3 msec Ao max P.9 mmHg MV V2 mean: 52.6 cm/sec Ao V2 mean: 155.0 cm/sec MV mean P.2 mmHg MV dec slope: 272.5 cm/sec2 Ao mean P.1 mmHg MV V2 VTI: 21.2 cm MVA(P1/2t): 2.5 cm2 Ao V2 VTI: 46.7 cm AV (velocity ratio): 0.65 MVA(VTI): 4.7 cm2 CHUCK(I,D): 2.1 cm2 CHUCK(V,D): 2.2 cm2 LV V1 max: 151.9 cm/sec SV(LVOT): 99.2 ml PA V2 max: 91.6 cm/sec LV V1 max P.2 mmHg PA V2 mean: 68.0 cm/sec LV V1 mean P.4 mmHg LV V1 mean: 111.1 cm/sec LV V1 VTI: 30.5 cm TR max cruz: 273.1 cm/sec TR max P.8 mmHg ECHO/Echo Complete Interpretation Summary The left ventricular ejection fraction is 65 %. The left atrium is moderately enlarged. Mild diffuse aortic valve calcification. Mild aortic stenosis. Ordering Physician: Francheska Trevizo Referring Physician: Scar Hdz Performed By: Melly Fair, ANN, RVT 03/10/24924 Date Sharee Gupta MD CC: Dr. Scar Hdz MD; SAAD Bishop Date Dictated: 03/06/24 1406 Date Transcribed: 03/10/24924 Probation Counselor: Signed Normal [facility] Carotid Duplex Ultrasoundon 02-18-2024 Carotid Duplex Ultrasound [facility] [address] [place] [address] Carotid Duplex Ultrasound 02/18/24 0853 MR#: [id number] Acct: [id number] Name: CHICHI GERARD Rep #: [id number] : 1950 73 From: Lizandro Zaidi MD Attending Dr: Dr. Lizandro Zaidi MD Status: RE G CLI Ordering Dr: Lizandro Zaidi MD Date: 02/18/24 Location: [facility] Sex: M C Admitted: Reason For Study: Bilateral Carotid Stenosis Rt. Velocities/BP Lt. Velocities/BP Prox CCA 118/16 cm/sec. Prox CCA 113/16 cm/sec. Mid CCA 104/18 cm/sec. Mid CCA 136/25 cm/sec. Dist CCA 97/18 cm/sec. Dist CCA 106/18 cm/sec. Prox ICA 95/20 cm/sec. Prox ICA 89/22 cm/sec. Mid ICA 104/22 cm/sec. Mid ICA 138/25 cm/sec. Dist ICA 86/23 cm/sec. Dist ICA 102/27 cm/sec. Rt. ICA/CCA = 1.0. Lt. ICA/CCA = 1.01. Prox ECA 290/8 cm/sec. Prox ECA 274/8 cm/sec. Rt. Vert. 95/11 cm/sec. Lt. Vert. 64/16 cm/sec. Right Extracranial There is heterogeneous, irregular atherosclerotic plaque noted in the right common carotid artery. There is heterogeneous, irregular atherosclerotic plaque noted in the right internal carotid artery. There is heterogeneous, irregular atherosclerotic plaque noted in the right external carotid artery. Antegrade flow is noted in the right vertebral artery. Left Extracranial There is heterogeneous, irregular atherosclerotic plaque noted in the left common carotid artery. There is heterogeneous, irregular atherosclerotic plaque noted in the left internal carotid artery. There is heterogeneous, irregular atherosclerotic plaque noted in the left external carotid artery. Antegrade flow is noted in the left vertebral artery. Procedure Carotid Duplex 81321. This is a Carotid Duplex examination using B-mode, color flow and specral Doppler. Exam performed in department. VL/Carotid Duplex Ultrasound Interpretation Summary Heterogenous calcific plaque with shadowing at the proximal right internal carotid artery with less than 50% stenosis Greater than 50% stenosis right external carotid artery Heterogenous plaque at the proximal left internal carotid artery with less than 50% stenosis Greater than 50% stenosis left external carotid artery Patent and antegrade vertebral arteries bilaterally This utilizes a new interpretive scale and so there is no significant change from the previous examination of February 26, 2023 Ordering Physician: Lizandro Zaidi Referring Physician: Scar Hdz Performed By: Minal Bullock, ANN, RVT 02/18/247 Date Lizandro Zaidi MD CC: Dr. Scar Hdz MD; Dr. Lizandro Zaidi MD Date Dictated: 02/18/24 0853 Date Transcribed: 02/18/241216 Probation Counselor: Signed [facility] Cardiology Visit Reporton Cardiology Visit Report [facility] [address] [place], [place] [address] OFFICE VISIT Date of Service: 02/06/24 MR#: [id number] Acct: [id number] Name: CHICHI GERARD Rep #: [id number] : 1950 Provider: SAAD Phelps Age/Sex: 73/M [place] [facility] [place]: Signed HPI HPI History of Present Illness Details: CHICHI GERARD is a 73 M who presents to the office today for a cardiovascular follow-up with a history of coronary artery disease with bypass surgery in 2012 (ERICKSON to the LAD, SVG to the OM1 branch of the circumflex artery), SVT, nonsustained ventricular tachycardia noted during cardiac rehabilitation, hyperlipidemia, and hypertension. He was started on amiodarone however this was discontinued due to bradycardia. He does not have any chest discomfort/heaviness/tig htness. His exercise tolerance is stable for his age. He does walk routinely. He does not have any worsening symptoms of shortness of breath. He denies any PND. He does not have any orthopnea. He does not have any symptoms of congestive heart failure. He does not have any palpitations that he is aware of. He does have positional dizziness that occurs daily. He does not have any near-syncope or syncope. He does not have any lower extremity edema. He does not have any symptoms of claudication. 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 Is patient in pain?: No Allergies No Known Allergies Allergy (Verified 02/06/24 08:46) Medications metformin 500 mg tablet,extended release 24 hr 1,000 mg PO BID 08/27/13 [History Confirmed 02/06/24] tamsulosin 0.4 mg capsule 0.4 mg PO DAILY 05/03/17 [History Confirmed 02/06/24] finasteride 5 mg tablet 5 mg PO QDAY 03/27/18 [History Confirmed 02/06/24] aspirin 81 mg tablet,delayed release (Adult Low Dose Aspirin) 81 mg PO DAILY 04/05/20 [History Confirmed 02/06/24] docusate sodium 100 mg capsule (Colace) 100 mg PO BID PRN Constipation 04/05/20 [History Confirmed 02/06/24] coenzyme Q10 75 mg capsule (Ultra CoQ10) 200 mg PO BID 01/19/21 [History Confirmed 02/06/24] prednisone 1 mg tablet 2 mg PO DAILY 07/07/21 [History Confirmed 02/06/24] vitamins A,C,K-cgxk-stvlim 4,296 mcg-226 mg-90 mg capsule (PreserVision AREDS) 1 cap PO BID 12/25/21 [History Confirmed 02/06/24] zinc 100 mg tablet 200 mg PO DAILY 12/25/21 [History Confirmed 02/06/24] atorvastatin 10 mg tablet 20 mg .Route DAILY 07/03/22 [History Confirmed 02/06/24] dapagliflozin propanediol 10 mg tablet (Farxiga) 10 mg PO DAILY 07/03/22 [History Confirmed 02/06/24] glimepiride 2 mg tablet 4 mg PO BID 07/03/22 [History Confirmed 02/06/24] hydroxychloroquine 200 mg tablet 200 mg PO DAILY 07/03/22 [History Confirmed 02/06/24] carvedilol 6.25 mg tablet (Coreg) 6.25 mg PO BID #180 tabs 03/19/23 [Rx Confirmed 02/06/24] alendronate 70 mg tablet 70 mg PO QWEEK 05/16/23 [History Confirmed 02/06/24] dulaglutide 0.75 mg/0.5 mL subcutaneous pen injector (Trulicity) 0.75 mg subcut QWEEK 05/16/23 [History Confirmed 02/06/24] lisinopril 5 mg tablet 5 mg PO DAILY #90 tabs 06/11/23 [Rx Confirmed 02/06/24] Nurse's Note: no list, patient states no changes in medications PFSH Medical History Aortic calcification Atherosclerotic heart disease of [place] coronary artery without angina pectoris Bilateral carotid artery stenosis CAD (coronary artery disease) Diabetes mellitus Essential hypertension HTN (hypertension) Hyperlipemia Obstructive sleep apnea Other medical terminologist (current) drug therapy Peripheral arterial occlusive disease Pure hypercholesterolemia Supraventricular tachycardia Type 2 diabetes mellitus Ventricular tachycardia Surgical History History of vasectomy Hx of CABG ( 07/04/13) Hx of colonoscopy Family History Mother CAD (coronary artery disease) Colon cancer Asthma Father Cancer Pancreatic cancer Sister CVA (cerebral vascular accident) Brother Diabetes Heart disease Hypertension Brother Hypertension Heart disease Diabetes Brother Hx of CABG Hypertension Heart disease Kidney disease Social History Smoking Status: Never smoker second hand exposure: No alcohol intake: never substance use type: does not use caffeine: Yes what type of physical activity do you participat (more content not included)... Normal [facility] Basophil percentageOrdered B y: Scar Andreina on 11-30-2023 Bilirubin [Mass/Vol] 0.50 mg/dL 0.20-1.00 [facility] Comment on above: For patients on eltr ombopag therapy, use of Dimension Shiro TBIL is not recommended. Chloride [Moles/Vol] 103 mmol/L 98-107 [facility] Cholesterol [Mass/Vol] 116 mg/dL <200 [facility] Comment on above: <200 mg/dL Desirable 200-240 mg/dL Borderline >240 mg/dL High Risk Glucose [Mass/Vol] 221 mg/dL 74-106 [facility] Comment on above: Glucose result great er than or equal to 200 mg/dLsuggests DIABETES MELLITUS per A.D.A. criteria. Potassium [Moles/Vol] 4.7 mmol/L 3.5-5.1 [facility] Protein [Mass/Vol] 7.1 g/dL 6.4-8.2 [facility] Sodium [Moles/Vol] 135 mmol/L 136-145 [facility] Triglyceride [Mass/Vol] 109 mg/dL <199 [facility] Comment on above: The drugs N-Acetylcy steine and Metamizole may falsely depress this assay.Serum Triglycerides Reference Interval Normal <150 mg/dL Borderline high 150 - 199 mg/dL High 200 - 499 mg/dL Very High > or = 500 mg/dL Laboratory - Chemistry and C hemistry - challengeOrdered By: Scar Hdz on 11-30-2023 ALP [Catalytic activity/Vol] 47 U/L 45-117 [facility] ALT [Catalytic activity/Vol] 15 U/L 16-61 [facility] CO2 [Moles/Vol] 26.0 mmol/L 21.0-32.0 [facility] Globulin (S) [Mass/Vol] 3.4 g/dL 2.2-4.2 [facility] Urea nitrogen/Creatinine [Mass ratio] 20.6 mg/mg 10-20 [facility] No Panel InformationOrdered By: Scar Hdz on 11-30-2023 Estimated GFR (MDRD) Amer 72 mL/min >60 [facility] Comment on above: GFR Calc Estimated GFR (MDRD) Non-Af Amer 59 mL/min >60 [facility] Comment on above: Non- GFR Calc Urine Microalbumin/Creatinin e Ratio 13.9 mg/g CRE <30 [facility] Serum or plasma albumin qiana urement (mass/volume)Ordered By: Scar Hdz on 11-30-2023 Albumin [Mass/Vol] 3.7 g/dL 3.2-5.0 [facility] Serum or plasma albumin/glob ulin mass ratioOrdered By: Scar Hdz on 11-30-2023 Albumin/Globulin [Mass ratio] 1.1 {ratio} 0.9-2.4 [facility] Serum or plasma calcium qiana urement (mass/volume)Ordered By: Scar Hdz on 11-30-2023 Calcium [Mass/Vol] 8.9 mg/dL 8.5-10.1 [facility] Serum or plasma cholesterol in HDL measurement (mass/volume)Ordered By: Scar Hdz on 11-30-2023 Cholesterol in HDL [Mass/Vol] 38 mg/dL >40 [facility] Comment on above: The drugs N-Acetylcy steine and Metamizole may falsely depress this assay. Reference Range HDL <40 mg/dL Low HDL Cholesterol HDL >or= 60 mg/dL High HDL Cholesterol Serum or plasma cholesterol in VLDL measurement (mass/volume)Ordered By: Scar Hdz on 11-30-2023 Cholesterol in VLDL [Mass/Vol] 22 mg/dL 5-40 [facility] Serum or plasma creatinine m easurement (mass/volume)Ordered By: Scar Hdz on 11-30-2023 Creatinine [Mass/Vol] 1.26 mg/dL 0.70-1.30 [facility] Comment on above: The validity of the calculated GFR & GFRAA in patients over 70 years has not been determined. Clinical correlation is essential. Serum or plasma low density lipoprotein (LDL) cholesterol measurement (mass/volume)Ordered By: Scar Hdz on 11-30-2023 Cholesterol in LDL [Mass/Vol] 56 mg/dL 0-130 [facility] Serum or plasma urea nitroge n measurement (mass/volume)Ordered By: Scar Hdz on 11-30-2023 Urea nitrogen [Mass/Vol] 26 mg/dL 7-18 [facility] Thin prep Papanicolaou smear with manual screeningOrdered By: Scar Hdz on 11-30-2023 Thin prep Papanicolaou smear with manual screening 16 U/L 15-37 [facility] Thin prep Papanicolaou smear with manual screening 6 5-15 [facility] Thin prep Papanicolaou smear with manual screening 6.4 mg/L NO RANGE EST. [facility] Urine creatinine measurement (mass/volume)Ordered By: Scar Hdz on 11-30-2023 Creatinine (U) [Mass/Vol] 46.20 mg/dL NO RANGE EST. [facility] No Panel InformationOrdered By: Dr. Moreira on 04-27-2023 Prostate Specific Antigen Total 3.70 ng/mL 0.0-4.0 [facility] Comment on above: This test was perfor med using the TPSA assay method for the[facility]. Values obtained with differentassay methods cannot be used interchangably.When changing PSA assays in the course of monitoring apatient, additional sequential testing should be carriedout to confirm baseline values. Basophil percentageOrdered B y: Dr. Hdz on 02-23-2023 Bilirubin [Mass/Vol] 0.40 mg/dL 0.20-1.[address] [facility] Comment on above: For patients on eltr ombopag therapy, use of Dimension Shiro TBIL is not recommended. Chloride [Moles/Vol] 105 mmol/L 98-107 [facility] Cholesterol [Mass/Vol] 146 mg/dL <200 [facility] Comment on above: <200 mg/dL Desirable 200-240 mg/dL Borderline >240 mg/dL High Risk Glucose [Mass/Vol] 94 mg/dL 74-106 [facility] Potassium [Moles/Vol] 4.6 mmol/L 3.5-5.1 [facility] Protein [Mass/Vol] 7.0 g/dL 6.4-8.2 [facility] Sodium [Moles/Vol] 137 mmol/L 136-145 [facility] Triglyceride [Mass/Vol] 73 mg/dL <199 [facility] Comment on above: The drugs N-Acetylcy steine and Metamizole may falsely depress this assay.Serum Triglycerides Reference Interval Normal <150 mg/dL Borderline high 150 - 199 mg/dL High 200 - 499 mg/dL Very High > or = 500 mg/dL Laboratory - Chemistry and C hemistry - challengeOrdered By: Dr. Hdz on 02-23-2023 ALP [Catalytic activity/Vol] 46 U/L 45-117 [facility] ALT [Catalytic activity/Vol] 20 U/L 16-61 [facility] CO2 [Moles/Vol] 24.0 mmol/L 21.0-32.0 [facility] Globulin (S) [Mass/Vol] 3.3 g/dL 2.2-4.2 [facility] Urea nitrogen/Creatinine [Mass ratio] 26.8 mg/mg 10-20 [facility] No Panel InformationOrdered By: Dr. Hdz on 02-23-2023 Estimated GFR (MDRD) Amer 82 mL/min >60 [facility] Comment on above: GFR Calc Estimated GFR (MDRD) Non-Af Amer 68 mL/min >60 [facility] Comment on above: Non- GFR Calc Serum or plasma albumin qiana urement (mass/volume)Ordered By: Dr. Hdz on 02-23-2023 Albumin [Mass/Vol] 3.7 g/dL 3.2-5.0 [facility] Serum or plasma albumin/glob ulin mass ratioOrdered By: Dr. Hdz on 02-23-2023 Albumin/Globulin [Mass ratio] 1.1 {ratio} 0.9-2.4 [facility] Serum or plasma calcium qiana urement (mass/volume)Ordered By: Dr. Hdz on 02-23-2023 Calcium [Mass/Vol] 9.0 mg/dL 8.5-10.1 [facility] Serum or plasma cholesterol in HDL measurement (mass/volume)Ordered By: Dr. Hdz on 02-23-2023 Cholesterol in HDL [Mass/Vol] 38 mg/dL >40 [facility] Comment on above: The drugs N-Acetylcy steine and Metamizole may falsely depress this assay. Reference Range HDL <40 mg/dL Low HDL Cholesterol HDL >or= 60 mg/dL High HDL Cholesterol Serum or plasma cholesterol in VLDL measurement (mass/volume)Ordered By: Dr. Hdz on 02-23-2023 Cholesterol in VLDL [Mass/Vol] 15 mg/dL 5-40 [facility] Serum or plasma creatinine m easurement (mass/volume)Ordered By: Dr. Hdz on 02-23-2023 Creatinine [Mass/Vol] 1.12 mg/dL 0.70-1.30 [facility] Comment on above: The validity of the calculated GFR & GFRAA in patients over 70 years has not been determined. Clinical correlation is essential. Serum or plasma low density lipoprotein (LDL) cholesterol measurement (mass/volume)Ordered By: Dr. Hdz on 02-23-2023 Cholesterol in LDL [Mass/Vol] 93 mg/dL 0-130 [facility] Serum or plasma urea nitroge n measurement (mass/volume)Ordered By: Dr. Hdz on 02-23-2023 Urea nitrogen [Mass/Vol] 30 mg/dL 7-18 [facility] Thin prep Papanicolaou smear with manual screeningOrdered By: Dr. Hdz on 02-23-2023 Thin prep Papanicolaou smear with manual screening 18 U/L 15-37 [facility] Thin prep Papanicolaou smear with manual screening 8 5-15 [facility] No Panel Informationon 09-19 Prostate Specific Antigen Screen 5.28 ng/mL 0.00-4.00 [facility] Work Phone: [phone] Comment on above: This test was perfor med using the TPSA assay method for the[employer] chemistry system. Values obtained with differentassay methods cannot be used interchangably.When changing PSA assays in the course of monitoring apatient, additional sequential testing should be carriedout to confirm baseline values. Basophil percentageon 2021 Chloride [Moles/Vol] 104 mmol/L 98-107 [facility] Work Phone: [phone] Cholesterol [Mass/Vol] 128 mg/dL <200 [facility] Work Phone: [phone] Comment on above: <200 mg/dL Desirable 200-240 mg/dL Borderline >240 mg/dL High Risk Glucose [Mass/Vol] 144 mg/dL 74-106 [facility] Work Phone: [phone] Comment on above: Fasting Glucose resu lt greater than or equal to 126 mg/dL suggests DIABETES MELLITUS per A.D.A. criteria. Potassium [Moles/Vol] 4.6 mmol/L 3.5-5.1 [facility] Work Phone: [phone] Sodium [Moles/Vol] 136 mmol/L 136-145 [facility] Work Phone: [phone] Triglyceride [Mass/Vol] 84 mg/dL <199 [facility] Work Phone: [phone] Comment on above: The drugs N-Acetylcy steine and Metamizole may falsely depress this assay.Serum Triglycerides Reference Interval Normal <150 mg/dL Borderline high 150 - 199 mg/dL High 200 - 499 mg/dL Very High > or = 500 mg/dL Laboratory - Chemistry and C hemistry - challengeon 09-11-2022 CO2 [Moles/Vol] 26.0 mmol/L 21.0-32.0 [facility] Work Phone: [phone] Urea nitrogen/Creatinine [Mass ratio] 15.5 mg/mg 09-07 [facility] Work Phone: [phone] No Panel Informationon 09-11 Estimated GFR (MDRD) Amer 84 mL/min >60 [facility] Work Phone: [phone] Comment on above: GFR Calc Estimated GFR (MDRD) Non-Af Amer 70 mL/min >60 [facility] Work Phone: Comment on above: Non- GFR Calc Urine Microalbumin/Creatinin e Ratio 15.1 mg/g CRE <30 [facility] Work Phone: [phone] Serum or plasma calcium qiana urement (mass/volume)on 09-11-2022 Calcium [Mass/Vol] 8.9 mg/dL 8.5-10.1 [facility] Work Phone: [phone] Serum or plasma cholesterol in HDL measurement (mass/volume)on 09-11-2022 Cholesterol in HDL [Mass/Vol] 37 mg/dL >40 [facility] Work Phone: Comment on above: The drugs N-Acetylcy steine and Metamizole may falsely depress this assay. Reference Range HDL <40 mg/dL Low HDL Cholesterol HDL >or= 60 mg/dL High HDL Cholesterol Serum or plasma cholesterol in VLDL measurement (mass/volume)on 09-11-2022 Cholesterol in VLDL [Mass/Vol] 17 mg/dL 5-40 [facility] Work Phone: [phone] Serum or plasma creatinine m easurement (mass/volume)on 09-11-2022 Creatinine [Mass/Vol] 1.10 mg/dL 0.70-1.30 [facility] Work Phone: Comment on above: The validity of the calculated GFR & GFRAA in patients over 70 years has not been determined. Clinical correlation is essential. Serum or plasma low density lipoprotein (LDL) cholesterol measurement (mass/volume)on 09-11-2022 Cholesterol in LDL [Mass/Vol] 74 mg/dL 0-130 [facility] Work Phone: [phone] Serum or plasma urea nitroge n measurement (mass/volume)on 09-11-2022 Urea nitrogen [Mass/Vol] 17 mg/dL 7-18 [facility] Work Phone: [phone] Thin prep Papanicolaou smear with manual screeningon 09-11-2022 Thin prep Papanicolaou smear with manual screening 6 5-15 [facility] Work Phone: Thin prep Papanicolaou smear with manual screening 15.4 mg/L NO RANGE EST. [facility] Work Phone: Urine creatinine measurement (mass/volume)on 09-11-2022 Creatinine (U) [Mass/Vol] 102.00 mg/dL NO RANGE EST. [facility] Work Phone: Whole blood hemoglobin A1c/t otal hemoglobin ratio (mass fraction)on 09-11-2022 HbA1c (Bld) [Mass fraction] 7.6 % 3.8-5.6 [facility] Work Phone: Comment on above: Normal < 5.7 % Predi abetic 5.7 - 6.4 % Diabetic >or= 6.5 % Please note range changes. Basophil percentageon 2021 Basophil percentage < 0.6 mg/dL 0.70-1.30 [facility] Work Phone: No Panel Informationon 02-02 Bedside Estimated GFR (eGFR) > 60.0000 mL/min >60 [facility] Work Phone: Vital Signs Date Time Vital Sign Value Performing Clinician Faci lity 04-30-2025 09:51-0400 Body height 177.[address] Scar Hdz MD Work Phone: [facility] 04-30-2025 09:51-0400 Body mass index (BMI) [Ratio] 25 kg/m2 Dr. Scar Hdz MD Work Phone: [facility] 04-30-2025 09:51-0400 Body weight 78.[address] Scar Hdz MD Work Phone: [facility] 04-30-2025 09:51-0400 Diastolic blood pressure 72 mm[Hg] Dr. Scar Hdz MD Work Phone: [facility] 04-30-2025 09:51-0400 Heart rate 71 /min Dr. Scar Hdz MD Work Phone: [facility] 04-30-2025 09:51-0400 Respiratory rate 16 /min Dr. Scar Hdz MD Work Phone: [facility] 04-30-2025 09:51-0400 Systolic blood pressure 120 mm[Hg] Dr. Scar Hdz MD Work Phone: [facility] 02-06-2024 08:46-0400 Body height 177.[address] Scar Hdz Work Phone: [facility] 02-06-2024 08:46-0400 Body mass index (BMI) [Ratio] 25.9 kg/m2 Dr. Scar Hdz Work Phone: [facility] 02-06-2024 08:46-0400 Body weight 82.[address] Scar Hdz Work Phone: [facility] 02-06-2024 08:46-0400 Diastolic blood pressure 79 mm[Hg] Dr. Scar Hdz Work Phone: [facility] 02-06-2024 08:46-0400 Heart rate 68 /min Dr. Scar Hdz Work Phone: [facility] 02-06-2024 08:46-0400 Respiratory rate 18 /min Dr. Scar Hdz Work Phone: [facility] 02-06-2024 08:46-0400 SaO2% (BldA) [Mass fraction] 97 % Dr. Scar Hdz Work Phone: [facility] 02-06-2024 08:46-0400 Systolic blood pressure 127 mm[Hg] Dr. Scar Hdz Work Phone: [facility] 03-07-2023 15:01-0400 SaO2% (BldA) [Mass fraction] 95 % Dr. Scar Hdz Work Phone: [facility] 11-08-2022 09:46-0500 Diastolic blood pressure 70 mm[Hg] Dr. Scar Hdz Work Phone: [facility] 11-08-2022 09:46-0500 Systolic blood pressure 120 mm[Hg] Dr. Scar Hdz Work Phone: [facility] 11-08-2022 09:02-0500 Body height 177.[address] Scar Hdz Work Phone: [facility] 11-08-2022 09:02-0500 Body mass index (BMI) [Ratio] 25.8 kg/m2 Dr. Scar Hdz Work Phone: [facility] 11-08-2022 09:02-0500 Body weight 81.[address] cSar Hdz Work Phone: [facility] 11-08-2022 09:02-0500 Heart rate 66 /min Dr. Scar Hdz Work Phone: [facility] 11-08-2022 09:02-0500 Respiratory rate 18 /min Dr. Scar Hdz Work Phone: [facility] 11-08-2022 09:02-0500 SaO2% (BldA) [Mass fraction] 99 % Dr. Scar Hdz Work Phone: [facility] 07-03-2022 15:28-0400 Diastolic blood pressure 60 mm[Hg] Dr. Scar Hdz Work Phone: [facility] Work Phone: 07-03-2022 15:28-0400 Systolic blood pressure 100 mm[Hg] Dr. Scar Hdz Work Phone: [facility] Work Phone: 07-03-2022 15:01-0400 Body height 177.[address] Scar Hdz Work Phone: [facility] Work Phone: 07-03-2022 15:00-0400 Body mass index (BMI) [Ratio] 25.5 kg/m2 Dr. Scar Hdz Work Phone: [facility] Work Phone: 07-03-2022 15:00-0400 Body weight 80.[address] Scar Hdz Work Phone: [facility] Work Phone: 07-03-2022 15:00-0400 Heart rate 68 /min Dr. Scar Hdz Work Phone: [facility] Work Phone: 07-03-2022 15:00-0400 Respiratory rate 18 /min Dr. Scar Hdz Work Phone: [facility] Work Phone: 07-03-2022 15:00-0400 SaO2% (BldA) [Mass fraction] 96 % Dr. Scar Hdz Work Phone: [facility] Work Phone: 04-20-2022 09:49-0400 Body height 177.[address] Scar Hdz Work Phone: [facility] Work Phone: 04-20-2022 09:49-0400 Body mass index (BMI) [Ratio] 26 kg/m2 Dr. Scar Hdz Work Phone: [facility] Work Phone: 04-20-2022 09:49-0400 Body temperature 97 [degF] Dr. Scar Hdz Work Phone: [facility] Work Phone: 04-20-2022 09:49-0400 Body weight 82.[address] Scar Hdz Work Phone: [facility] Work Phone: 04-20-2022 09:49-0400 Diastolic blood pressure 80 mm[Hg] Dr. Scar Hdz Work Phone: [facility] Work Phone: 04-20-2022 09:49-0400 Heart rate 80 /min Dr. Scar Hdz Work Phone: [facility] Work Phone: 04-20-2022 09:49-0400 Respiratory rate 18 /min Dr. Scar Hdz Work Phone: [facility] Work Phone: 04-20-2022 09:49-0400 SaO2% (BldA) [Mass fraction] 97 % Dr. Scar Hdz Work Phone: [facility] Work Phone: 04-20-2022 09:49-0400 Systolic blood pressure 145 mm[Hg] Dr. Sacr Hdz Work Phone: [facility] Work Phone: Encounters Encounter Date Encounter Type Care Provider Facility Start: 04-30-2025 End: 04-30-[address] Scar Hdz MD Work Phone: [facility] Work Phone: Start: 04-30-2025 End: 04-30-[address] Everton Montelongo MD -[facility] Work Phone: Start: 11-24-2024 End: 11-24-2024 ambulatory Scar Hdz Facility:[facility] Start: 09-29-2024 End: 09-29-2024 ambulatory Scar Hdz Facility:[facility] Start: 06-10-2024 End: 06-10-2024 ambulatory Scar Hdz Facility:[facility] Start: 04-29-2024 End: 04-29-2024 ambulatory Scar Hdz Facility:[facility] Start: 03-06-2024 Non-patient / Non-visit Dr. Saad Hdz Work Phone: [facility] Start: 03-06-2024 End: 03-06-[address] Scar Hdz Work Phone: [facility] Work Phone: Start: 03-06-2024 End: 03-06-[address] [facility] Start: 03-06-2024 End: 03-06-2024 ambulatory Scar Hdz Facility:[facility] Start: 02-18-2024 Non-patient / Non-visit Dr. Saad Hdz Work Phone: [facility] Start: 02-18-2024 End: 02-18-[address] Scar Hdz Work Phone: [facility] Work Phone: Start: 02-18-2024 End: 02-18-[address] [facility] Start: 02-18-2024 End: 02-18-2024 ambulatory Lizandro Zaidi Facility:[facility] Start: 02-06-2024 End: 02-06-[address] Scar Hdz Work Phone: [facility] Work Phone: Start: 02-06-2024 End: 02-06-2024 ambulatory Scar Hdz Facility:[facility] Start: 11-30-2023 End: 11-30-[address] Scar Hdz Work Phone: [facility] Work Phone: Start: 04-27-2023 End: 04-27-[address] Scar Hdz Work Phone: [facility] Work Phone: Start: 04-27-2023 End: 04-27-[address] Scar Hdz Work Phone: [facility] Start: 03-07-2023 End: 03-07-[address] Scar Hdz Work Phone: [facility] Start: 02-26-2023 Non-patient / Non-visit Dr. Saad Hdz Work Phone: [facility] Start: 02-26-2023 End: 02-26-[address] Scar Hdz Work Phone: [facility] Work Phone: Start: 02-26-2023 End: 02-26-[address] [facility] Start: 02-23-2023 End: 02-23-[address] Scar Hdz Work Phone: [facility] Work Phone: Start: 02-23-2023 End: 02-23-[address] Scar Hdz Work Phone: [facility] Start: 11-08-2022 End: 11-08-[address] Scar Hdz Work Phone: [facility] Start: 09-19-2022 End: 09-19-[address] Scar Hdz Work Phone: [facility] Work Phone: Start: 09-19-2022 End: 09-19-[address] Scar Hdz Work Phone: [facility] Start: 09-11-2022 End: 09-11-[address] Scar Hdz Work Phone: [facility] Work Phone: Start: 09-11-2022 End: 09-11-[address] Scar Hdz Work Phone: [facility] Start: 07-03-2022 End: 07-03-[address] Scar Hdz Work Phone: [facility] Start: 05-11-2022 Non-patient / Non-visit Dr. Saad Hdz Work Phone: [facility] Start: 05-11-2022 End: 05-11-[address] Scar Hdz Work Phone: [facility] Start: 04-20-2022 End: 04-20-[address] Scar Hdz Work Phone: [facility] Start: 04-13-2022 Non-patient / Non-visit Dr. Saad Hdz Work Phone: [facility] Start: 04-13-2022 End: 04-13-[address] [facility] Start: 02-02-2022 End: 02-02-[address] [facility] Procedures Date Procedure Procedure Detail Performing Clinician Start: 02-02-2022 MRI of brain with contrast Dr. Scar Hdz Work Phone: Start: 06-19-2013 History of coronary artery bypass grafting Hx of CABG Dr. Scar Hdz Work Phone: Comment on above: CABG X 2, ERICKSON to LA D, SVG to OM branch of CFX 07/04/13 H/O: vasectomy History of vasectomy Dr. Lola Hdz Work Phone: Plan of Treatment Date Care Activity Detail Author [facility] Work Phone: [facility] Payers Date Payer Category Payer Self-pay [id number] 2017 Private Health Insurance 101 [id number] Unknown [id number] [id number] [id number] Unknown [id number] 2.16.8 [id number] Unknown [id number] 2.16.8 [id number] Unknown [id number] 2.16.8 [id number] Unknown [id number] 2.16.8 [id number] Unknown [id number] 2.16.8 [id number] Unknown [id number] 2.16.8 [id number] Unknown [id number] 2.16.8 [id number] Unknown [id number] 2.16.8 [id number] Social History Date Type Detail Facility Start: 04-20-2022 End: 02-06-2024 Tobacco smoking status NHIS Unknown if ever smoked [facility] Start: 04-22-2021 None [facility] Start: 08-27-2013 Spouse/ Signif icant Other [facility] Start: 08-27-2013 Non-smoker [facility] Start: 1950 Sex Assigned At Male [facility] Start: 02-06-2024 Tobacco smoking status NHIS Never smoked tobacco (finding) [facility] Evaluation note Note Date & Type Note Facility Evaluation note Diagnosis Onset Date Peripheral arterial occlusive disease acute Screening for AAA (abdominal aortic aneurysm) acute Bilateral carotid artery stenosis chronic [facility] Work Phone: Evaluation note Note Date & Type Note Facility Evaluation note Diagnosis Onset Date Aortic calcification acute 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 Essential hypertension chron ic Pure hypercholesterolemia ch ronic Supraventricular tachycardia chronic Ventricular tachycardia rug frame mounter marcin Hx of CABG June, resolved [facility] Work Phone: Evaluation note Note Date & Type Note Facility Evaluation note Diagnosis Onset Date Aortic calcification acute 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 Bilateral carotid artery stenosis chronic Essential hypertension chron ic Pure hypercholesterolemia ch ronic Supraventricular tachycardia chronic Ventricular tachycardia rug frame mounter marcin Hx of CABG June, resolved [facility] Work Phone: Evaluation note Note Date & Type Note Facility Evaluation note Diagnosis Onset Date Bilateral carotid artery stenosis chronic [facility] Work Phone: Evaluation note Note Date & Type Note Facility Evaluation note No assessment information availa [facility] Services Work Phone: Reason for referral (narrative) Note Date & Type Note Facility Reason for referral (narrative) No reason for referral information available [facility] Work Phone: Chief Complaint and Reason for Visit Chief Complaint ATTN CHECO REAL AL HEARING LOSS Occlusion and stenosis of bilateral carotid arteri COROTIC DISEASE AAA SCREENING Reason for Visit Peripheral arterial occlusive disease Screening for AAA (abdominal aortic aneurysm) Bilateral carotid artery stenosis Chief Complaint 1 Y FU Reason for Visit Aortic calcification Atherosclerotic heart disease of [place] coronary artery without angina pectoris Essential hypertension Pure hypercholesterolemia Supraventricular tachycardia Ventricular tachycardia Hx of CABG Chief Complaint 4 m fu Occlusion and stenosis of bilateral carotid arteri Reason for Visit Aortic calcification Atherosclerotic heart disease of [place] coronary artery without angina pectoris Bilateral carotid artery stenosis Essential hypertension Pure hypercholesterolemia Supraventricular tachycardia Ventricular tachycardia Hx of CABG Chief Complaint Occlusion and stenos is of bilateral carotid arteri FU CAROTID DUPLEX US PSA Reason for Visit Bilateral carotid ar grecia stenosis Chief Complaint 9 M FU Occlusion and stenosis of bilateral carotid arteri Reason for Visit Aortic calcification Atherosclerotic heart disease of [place] coronary artery without angina pectoris Bilateral carotid artery stenosis Essential hypertension Pure hypercholesterolemia Supraventricular tachycardia Ventricular tachycardia Hx of CABG Chief Complaint 9 M FU Occlusion and stenosis of bilateral carotid arteri ATHEROSCLEROTIC HEART DISEASE Reason for Visit Aortic calcification Atherosclerotic heart disease of [place] coronary artery without angina pectoris Bilateral carotid artery stenosis Essential hypertension Pure hypercholesterolemia Supraventricular tachycardia Ventricular tachycardia Hx of CABG Chief Complaint Admit Date 1 Y FU April 30, 2025 9:50 am Family History Relationship Condition Age at Onset Recorded Date/T jose mother Coronary artery disease Unknown Malignant neoplasm of colon Unknown Asthma Unknown father Malignant neoplasm Unknown Malignant neoplasm of pancreas Unknown sister Cerebrovascular accident (CVA) Unknown brother Diabetes mellitus Unknown Cardiac disease Unknown Hypertension Unknown brother Hypertension Unknown Diabetes mellitus Unknown brother History of coronary artery bypass surgery Unknown Kidney disorder Unknown Advance Directives Advance Directive Response Recorded Date/ Time Advance Directives No September 21, 2014 12:35pm Living Will Yes December 25 1:19pm Power of Truck Packer Yes December 25, 2021 1:19pm Advance Directive Response Recorded Date/ Time Advance Directives No September 21, 2014 11:35am Living Will Yes February 6th, 20 22 12:19pm Power of Truck Packer Yes December 25, 2021 12:19pm Advance Directive Response Recorded Date/ Time Advance Directives No September 21, 2014 12:35pm Summary Purpose Additional Source Comments Goals (unrecognized section and content) Goals may be documented in a n alternate sectionGoals may be documented in an alternate sectionGoals may be documented in an alternate sectionGoals may be documented in an alternate sectionGoals may be documented in an alternate sectionGoals may be documented in an alternate sectionGoals may be documented in an alternate sectionGoals may be documented in an alternate sectionGoals may be documented in an alternate section Care Teams (unrecognized sec tion and content) Team Status: Active Member Role Status Dates Dr. Scar Hdz MD Family Provider Active Dr. Scar Hdz MD Primary Care Provider Active Team Status: Inactive Member Role Status Dates Dr. Scar Hdz MD Primary Care Provider, Referring Provider Active Francheska VILLANUEVA, PA Attending Provider Active Team Status: Active Member Role Status Dates Dr. Scar Hdz MD Primary Care Provider Active Dr. Lizandro Zaidi MD Attending Provider Active Team Status: Active Member Role Status Dates Dr. Scar Hdz MD Primary Care Provider Active Dr. Lizandro Zaidi MD Attending Provider, Referring Provider Active Team Status: Inactive Member Role Status Dates Dr. Scar Hdz MD Primary Care Provi yoana, Attending Provider, Referring Provider Active Team Status: Inactive Member Role Status Dates Dr. Scar Hdz MD Primary Care Provider Active Dr. Lizandro Zaidi MD Attending Provider, Referring Provider Active Team Status: Inactive Member Role Status Dates Dr. Scar Hdz MD Primary Care Provider, Referring Provider Active Dr. Lizandro Zaidi MD Attending Provider Active Team Status: Inactive Member Role Status Dates Dr. Scar Hdz MD Primary Care Provider Active Dr. Cirilo Moreira MD Attending Provider, Referr ing Provider Active Team Status: Active Member Role Status Dates Dr. Scar Hdz MD Primary Care Provider Active Dr. Sharee Gupta MD Attending Provider Active Team Status: Inactive Member Role Status Dates Dr. Scar Hdz MD Primary Care Provider Active Francheska Trevizo PA, PA Attending Provider, Referr ing Provider Active Team Status: Inactive Member Role Status Dates Dr. Scar Hdz MD Primary Care Provider Active Start: April 30, 2025 End: April 30, 2025 Dr. Scar Hdz MD Referring Provider Active Start: April 30, 2025 End: April 30, 2025 Dr. Everton Montelongo MD Attending Provider Active Start: April 30, 2025 End: April 30, 2025 (unrecognized sect ion and content) No Status Records Found INFORMATION SOURCE (unrecogn ized section and content) DATE CREATED AUTHOR 12/18/2024 [facility] [place] FOR RECORDS PERTAINING TO PATIENTS WHO ARE OR HAVE BEEN ENROLLED IN A CHEMICAL DEPENDENCY/SUBSTANCEABUSE PROGRAM, SOME INFORMATION MAY BE OMITTED. This clinical summary was aggregated from multiple sources. Caution should be exercised in using it in the provision of clinical care. This summary normalizes information from multiple sources, and as a consequence, information in this document may materially change the coding, format and clinical context of patient data. In addition, data may be omitted in some cases. CLINICAL DECISIONS SHOULD BE BASED ON THE PRIMARY CLINICAL RECORDS. [employer] [facility]. provides no warranty or guarantee of the accuracy or completeness of information in this document.
== END | disposition home or self-care (01) ==
LOC: LAB 10:25
PROVIDERS: PCP Family Medicine; Referring Provider Urology; Visit Provider Urology
DX: R97.20 Elevated prostate specific antigen [PSA] (principal)
CPT/HCPCS: 36415; 84153

== ENCOUNTER → 2025-05-25 | Outpatient (CLI) | payer MEDICARE, SELFPAY ==
[2025-05-25 13:04] LABS: Creatinine, Urine (random) 84.20 mg/dL (39.00-259.00); Microalbumin,Random Urine 13.3 mg/L (NO RANGE EST.)
== END | disposition home or self-care (01) ==
LOC: MFPLAB 09:32
PROVIDERS: PCP Family Medicine; Referring Provider Family Medicine; Visit Provider Family Medicine
DX: E11.9 Type 2 diabetes mellitus without complications (principal)
CPT/HCPCS: 82043; 82570

== ENCOUNTER → 2025-05-29 | Outpatient (CLI) | payer MEDICARE, SELFPAY ==
--- NOTE | 2025-05-29 12:56 | ECHOD_ITS ---
Reason For Study Reason For Study: MURMUR Procedure This was a 2D Doppler, Color Flow transthoracic echocardiogram. Exam performed in department. Left Ventricle Normal LV size. Mild concentric left ventricular hypertrophy. Left ventricular systolic function is normal. The left ventricular ejection fraction is 65 %. Stage 1 diastolic dysfunction. No regional wall motion abnormalities noted. Right Ventricle Normal RV size. Normal systolic function. Mitral Valve There is mild to moderate mitral annular calcification. Tricuspid Valve Normal tricuspid valve. Mild (1+) tricuspid valve insufficiency. Pulmonary artery systolic pressure is 38 mmHg. Aortic Valve Trisinus/trileaflet aortic valve. Mild focal aortic valve calcification. Peak aortic valve gradient 41 mmHg. Mean aortic valve gradient 22 mmHg. Pulmonic Valve Normal pulmonic valve. Great Vessels Normal aortic root. The pulmonary artery is normal size. Inferior vena cava collapse with respiration. Pericardium/Pleural No pericardial effusion. MMode/2D Measurements & Calculations LVIDd: 3.9 cm IVSd: 1.3 cm LVOT diam: 2.0 cm LVIDs: 2.7 cm LVPWd: 1.3 cm LVOT area: 3.2 cm2 RVDd: 3.5 cm FS: 30.2 % Ao root diam: 3.2 cm LAV(MOD-bp): 40.6 ml LVAd ap4: 22.4 cm2 LAV(MOD-bp) Indexed: 20.4 ml/m2 LVLd ap4: 7.4 cm LAV(MOD-sp2): 42.9 ml EDV(MOD-sp4): 56.8 ml LAV(MOD-sp4): 37.4 ml EDV(sp4-el): 57.2 ml LVAs ap4: 12.1 cm2 LVLs ap4: 6.3 cm ESV(MOD-sp4): 21.2 ml ESV(sp4-el): 19.8 ml EF(MOD-sp4): 62.7 % EF(sp4-el): 65.5 % SV(MOD-sp4): 35.6 ml SV(sp4-el): 37.5 ml LA A4 area: 15.7 cm2 SI(MOD-sp4): 17.8 ml/m2 LA dimension(2D): 3.6 cm RA A4 area: 14.0 cm2 TAPSE: 2.0 cm Time Measurements MV dec time: 0.22 sec Doppler Measurements & Calculations MV E max cruz: 91.8 cm/sec Lat Peak E' Cruz: 10.2 cm/sec Med Peak E' Cruz: 10.5 cm/sec MV A max cruz: 105.8 cm/sec E/E' lat: 9.0 E/E' med: 8.7 MV E/A: 0.87 Ao V2 max: 321.0 cm/sec LV V1 max: 123.1 cm/sec SV(LVOT): 89.6 ml Ao max P.2 mmHg LV V1 max P.1 mmHg Ao V2 mean: 220.3 cm/sec LV V1 mean P.2 mmHg Ao mean P.9 mmHg LV V1 mean: 84.2 cm/sec Ao V2 VTI: 65.8 cm LV V1 VTI: 28.4 cm AV (velocity ratio): 0.43 CHUCK(I,D): 1.4 cm2 CHUCK(V,D): 1.2 cm2 PA V2 max: 109.8 cm/sec TR max cruz: 292.0 cm/sec TR max P.1 mmHg ECHO/Echo Complete Interpretation Summary Normal LV size. Mild concentric left ventricular hypertrophy. Left ventricular systolic function is normal. The left ventricular ejection fraction is 65 %. Stage 1 diastolic dysfunction. Mild focal aortic valve calcification. Mean aortic valve gradient 22 mmHg. Ordering Physician: Everton Montelongo Referring Physician: PIERRE HAILE Performed By: Katy Campbell RDCS
== END | disposition home or self-care (01) ==
LOC: CVS 12:54
PROVIDERS: PCP Family Medicine; Referring Provider Internal Medicine Cardiovascular Disease; Visit Provider Internal Medicine Cardiovascular Disease
DX: I35.0 Nonrheumatic aortic (valve) stenosis (principal)
CPT/HCPCS: 93306

== ENCOUNTER → 2025-08-27 | Outpatient (CLI) | payer MEDICARE, SELFPAY ==
[2025-08-27 19:16] LABS: AST(SGOT) 21 U/L (<=37); Alanine Aminotransfer ALT/SGPT 12 U/L (<=46); Albumin, Serum 4.2 g/dL (3.4-4.8); Alkaline Phosphatase 44 U/L (40-129); Anion Gap 12 (5-15); BUN 18 mg/dL (4-19); BUN/Creat Ratio 18.5 RATIO (10-20); Calcium,Total 9.5 mg/dL (7.6-11.0); Carbon Dioxide 24.9 mmol/L (21.0-32.0); Chloride 101 mmol/L (98-108); Cholesterol 130 mg/dL (<=200); Globulin 2.7 g/dL (2.2-4.2); Glucose 139 mg/dL (70-99); Low Density Lipoprotein Calc. 69 mg/dL; Potassium 4.4 mmol/L (3.3-5.1); Triglycerides 76 mg/dL; Very Low Density Lipoprotein 15 mg/dL (5-40); cholesterol:hdl ratio screen 2.81
== END | disposition home or self-care (01) ==
PROVIDERS: PCP Family Medicine; Visit Provider Family Medicine
DX: I10 Essential (primary) hypertension (principal)
CPT/HCPCS: 36415; 80053; 80061